=== PATIENT | male | born 1950 | race Caucasian/White ===

== ENCOUNTER 2018-02-10 08:26 | Inpatient (IN) | payer BC, MEDICARE ==
[~2018-02-10] VITALS: Ht 165.1 cm; Wt 61.7 kg
[2018-02-10] VITALS (8 sets, daily range): BP systolic 150–197; BP diastolic 88–113
[~2018-02-10 08:26] MED LIST: CIPROFLOXACIN500 M2 ORAL; IBUPROFEN600 MG ORAL
--- NOTE | 2018-02-10 08:49 | Emergency Room Report ---
History of Present Illness General Chief Complaint: Vomiting Source: Patient Present Illness HPI Patient is a 67-year-old male who presented after increased abdominal discomfort. Patient reports having increased generalized weakness. He reports having generalized body aches. Patient states that he was drinking heavily yesterday. He denies any fever. He reports having abdominal pain as well as vomiting. He denies any hematemesis. He states he's had similar symptoms approximately 6 months ago.The patient reports having prior history of hypertension but does not recall his medications. Allergies: Coded Allergies: No Known Allergies (Unverified , 07/20/16) Patient History Reviewed Nursing Documentation: PMH: Agreed; PSxH: Agreed Nursing Documentation-PMH Past Medical History: No History, Except For Hx Hypertension: Yes Hx Gastrointestinal Problems: Yes - GERD Review of Systems All Other Systems: negative except mentioned in HPI Physical Exam Vital Signs Date Time Temp Pulse Resp B/P (MAP) Pulse Ox O2 Delivery O2 Flow Rate FiO2 02/10/18 08:28 97.7 93 18 154/82 98 Room Air 97.7 Sp02 EP Interpretation: reviewed, normal General Appearance: normal inspection, alert, GCS 15, moderate distress Head: atraumatic ENT: normal ENT inspection, hearing grossly normal, normal voice Neck: normal inspection, full range of motion, supple, no bony tend Respiratory: normal inspection, lungs clear, normal breath sounds, no respiratory distress, no retraction, no wheezing Cardiovascular #1: regular rate, rhythm, no edema Gastrointestinal: normal inspection, normal bowel sounds, non tender, soft, no guarding, no hernia Genitourinary: no CVA tenderness Musculoskeletal: normal inspection, back normal, normal range of motion Neurologic: normal inspection, alert, oriented x3, responsive, manager acute III-XII nml as tested, speech normal Psychiatric: normal inspection, judgement/insight normal, mood/affect normal Skin: normal inspection, normal color, no rash Medical Decision Making Diagnostic Impression: Primary Impression: Pancreatitis, alcoholic, acute Additional Impressions: Hypertension Hx of diverticulitis of colon ER Course Patient presented for abdominal pain. Differential diagnoses included ischemic bowel, appendicitis, perforated viscus, abdominal aortic aneurysm, inferior myocardial infarction, viral gastroenteritis Because of complexity of patient's case laboratory testing and imaging studies were ordered. The patient was noted to have a recent heavy alcohol use. Patient reports having drinking more alcohol than usual. The patient does report having some prior history of diverticulitis however this appears more to be consistent with pancreatitis. The patient's the lipase was noted to be elevated as was his white blood count. The patient was discussed with The patient was discussed with Dr. Milagro Merritt [facility] physician for inpatient management due to advanced age and elevated white blood count. CT of abdomen showed no perforation or obstruction. Labs Test 02/10/18 08:46 02/10/18 09:46 White Blood Count 18.0 K/UL (4.8-10.8) Red Blood Count 5.26 M/UL (4.70-6.10) Hemoglobin 17.7 G/DL (14.2-18.0) Hematocrit 49.2 % (42.0-52.0) Mean Corpuscular Volume 94 FL (80-99) Mean Corpuscular Hemoglobin 33.7 PG (27.0-31.0) Mean Corpuscular Hemoglobin Concent 36.1 G/DL (32.0-36.0) Red Cell Distribution Width 11.7 % (11.6-14.8) Platelet Count 286 K/UL (150-450) Mean Platelet Volume 7.6 FL (6.5-10.1) Neutrophils (%) (Auto) % (45.0-75.0) Lymphocytes (%) (Auto) % (20.0-45.0) Monocytes (%) (Auto) % (1.0-10.0) Eosinophils (%) (Auto) % (0.0-3.0) Basophils (%) (Auto) % (0.0-2.0) Differential Total Cells Counted 100 Neutrophils % (Manual) 80 % (45-75) Lymphocytes % (Manual) 12 % (20-45) Monocytes % (Manual) 7 % (1-10) Eosinophils % (Manual) 0 % (0-3) Basophils % (Manual) 1 % (0-2) Band Neutrophils 0 % (0-8) Platelet Estimate Adequate Platelet Morphology Normal Red Blood Cell Morphology Normal Prothrombin Time 10.4 SEC (9.30-11.50) Prothromb Time International Ratio 1.0 (0.9-1.1) Activated Partial Thromboplast Time 28 SEC (23-33) Sodium Level 140 MMOL/L (136-145) Potassium Level 3.3 MMOL/L (3.5-5.1) Chloride Level 97 MMOL/L (98-107) Carbon Dioxide Level 28 MMOL/L (21-32) Anion Gap 15 mmol/L (5-15) Blood Urea Nitrogen 22 mg/dL (7-18) Creatinine 1.0 MG/DL (0.55-1.30) Estimat Glomerular Filtration Rate > 60 mL/min (>60) Glucose Level 187 MG/DL (74-106) Calcium Level 10.2 MG/DL (8.5-10.1) Total Bilirubin 1.7 MG/DL (0.2-1.0) Direct Bilirubin 0.3 MG/DL (0.0-0.3) Aspartate Amino Transf (AST/SGOT) 44 U/L (15-37) Alanine Aminotransferase (ALT/SGPT) 38 U/L (12-78) Alkaline Phosphatase 91 U/L (46-116) Troponin I 0.060 ng/mL (0.000-0.056) Total Protein 9.3 G/DL (6.4-8.2) Albumin 4.8 G/DL (3.4-5.0) Globulin 4.5 g/dL Albumin/Globulin Ratio 1.1 (1.0-2.7) Lipase 643 U/L (73-393) Urine Color Yellow Urine Appearance Clear Urine pH 6 (4.5-8.0) Urine Specific [place] 1.020 (1.005-1.035) Urine Protein 4+ (NEGATIVE) Urine Glucose (UA) 1+ (NEGATIVE) Urine Ketones 3+ (NEGATIVE) Urine Occult Blood 5+ (NEGATIVE) Urine Nitrite Negative (NEGATIVE) Urine Bilirubin Negative (NEGATIVE) Urine Urobilinogen Normal MG/DL (0.0-1.0) Urine Leukocyte Esterase Negative (NEGATIVE) Urine RBC 2-4 /HPF (0 - 0) Urine WBC 0-2 /HPF (0 - 0) Urine Squamous Epithelial Cells Occasional /LPF Urine Bacteria Few /HPF (NONE) Urine Opiates Screen Negative (NEGATIVE) Urine Barbiturates Screen Negative (NEGATIVE) Phencyclidine (PCP) Screen Negative (NEGATIVE) Urine Amphetamines Screen Negative (NEGATIVE) Urine Benzodiazepines Screen Negative (NEGATIVE) Urine Cocaine Screen Negative (NEGATIVE) Urine Marijuana (THC) Screen Positive (NEGATIVE) Last Vital Signs Date Time Temp Pulse Resp B/P (MAP) Pulse Ox O2 Delivery O2 Flow Rate FiO2 02/10/18 08:41 98.6 91 18 166/113 98 Room Air 98.6 Status: unchanged Disposition: ADMITTED INPATIENT Condition: Serious Neal Burks MD Feb 10, 2018 08:49
[2018-02-10] MEDS ORDERED: Pantoprazole Inj IV ONE (09:00)
[2018-02-10 09:21] LABS: ANION GAP 15 mmol/L (5-15); BLOOD UREA NITROGEN 22 mg/dL (7-18); CALCIUM 10.2 MG/DL (8.5-10.1); CARBON DIOXIDE 28 MMOL/L (21-32); CHLORIDE 97 MMOL/L (98-107); HEMATOCRIT 49.2 % (42.0-52.0); HEMOGLOBIN 17.7 G/DL (14.2-18.0); MEAN CORPUSCULAR VOLUME 94 FL (80-99); PLATELET COUNT 286 K/UL (150-450); POTASSIUM 3.3 MMOL/L (3.5-5.1); RED BLOOD COUNT 5.26 M/UL (4.70-6.10); RED CELL DISTRIBUTION WIDTH 11.7 % (11.6-14.8); SODIUM 140 MMOL/L (136-145)
[2018-02-10 09:26] LABS: ALANINE AMINOTRANSFERASE 38 U/L (12-78); ALBUMIN 4.8 G/DL (3.4-5.0); ALBUMIN/GLOBULIN RATIO 1.1 (1.0-2.7); ALKALINE PHOSPHATASE 91 U/L (46-116); ASPARTATE AMINO TRANSFERASE 44 U/L (15-37); BILIRUBIN,TOTAL 1.7 MG/DL (0.2-1.0)
[2018-02-10 09:41] LABS: BILIRUBIN,DIRECT 0.3 MG/DL (0.0-0.3)
[2018-02-10] MEDS ORDERED: Morphine Sulfate 4mg/ml Inj IVP ONE ×3 (09:45→14:15)
[2018-02-10 10:01] LABS: APPEARANCE,URINE CLEAR; BILIRUBIN, URINE NEGATIVE (NEGATIVE); GLUCOSE, URINE (UA) 1+ (NEGATIVE); KETONES,URINE 3+ (NEGATIVE); LEUKOCYTE ESTERASE ,URINE NEGATIVE (NEGATIVE); NITRITE,URINE NEGATIVE (NEGATIVE); PH,URINE 6 (4.5-8.0); PROTEIN,URINE 4+ (NEGATIVE); UROBILINOGEN,URINE NORMAL MG/DL (0.0-1.0)
[2018-02-10 10:13] LABS: COLOR,URINE YELLOW
[2018-02-10] MEDS ORDERED: D5 1/2NS w/KCl 20mEq 1,000 ML IV SCH (10:30)
[2018-02-10] MEDS ORDERED: Isovue-300 100ml vial INJ PRN (13:45)
[2018-02-10] MEDS ORDERED: D5NS 1,000 ML IV SCH (16:00)
[2018-02-10] MEDS: Morphine Sulfate 4mg/ml Inj IVP PRN ×2 (16:50→20:08)
[2018-02-10] MEDS: LORazepam Inj 2mg/ml 1ml IV PRN ×2 (17:08→22:35)
--- NOTE | 2018-02-10 17:38 | History & Physical ---
History and Physical History & Physicial #[id number] pancreatitis etoh abuse hypokalemia nv abdominal pain Milagro Rush DO Feb 10, 2018 17:37
[2018-02-10] MEDS ORDERED: Enalaprilat 2.5mg/2ml Inj IV SCH (18:00)
--- NOTE | 2018-02-10 19:30 | History and Physical Report ---
DATE OF ADMISSION: 02/10/2018 REASON FOR ADMISSION: Nausea, vomiting, and pancreatitis. HISTORY OF PRESENT ILLNESS: The patient is a 67-year-old gentleman who noted increased abdominal pain, severe in nature, happened 8 months ago and he had pancreatitis. He has a history of binge drinking a couple times a year and this is his second episode of pancreatitis. He has had no fevers or chills but was drinking heavily yesterday and then developed the pain. No vomiting, hemoptysis, hematochezia, melena, hematuria. Currently is NPO. Pain is controlled with IV morphine. PAST MEDICAL HISTORY: GERD. PAST SURGICAL HISTORY: Negative. MEDICATIONS: Prehospital and current medications reviewed, reconciled, and documented in electronic medical record in terms of dose, frequency, and route. SOCIAL HISTORY: Negative for tobacco. Positive for alcohol as noted by binge drinking, otherwise negative. 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 FAMILY HISTORY: Negative. PHYSICAL EXAMINATION: VITAL SIGNS: At the time my exam, he is alert. He is oriented. He is in no acute respiratory distress. HEENT: Normocephalic and atraumatic. Oropharynx is moist. Nasal mucosa is moist. NECK: Supple without lymphadenopathy. LUNGS: Decreased at the bases. No wheezing present. HEART: Regular rhythm without a murmur. ABDOMEN: Soft. Epigastric tenderness is noted. EXTREMITIES: No edema. NEUROLOGIC: No focal neuro deficits. SKIN: No skin rashes or lesions are present. LABORATORY AND DIAGNOSTIC DATA: His white count is 18, hemoglobin 17.7, platelets are 286. Sodium is 140, potassium 3.3, chloride 97, bicarb 28, BUN 22, gap of 15, creatinine is 1, glucose 187. Total bilirubin elevated 1.7. AST 44, ALT is 38. His troponin is 0.06, second troponin 0.068. Lipase is elevated at 643. Urinalysis is positive for ketones, negative for leukocyte esterase. Drug screen is positive for marijuana. Imaging studies are pending at this time. CT scan of the abdomen and pelvis was obtained in the emergency room, per report from the ER doctor CT of abdomen showed no perforation or obstruction but full report is pending at this time. ASSESSMENT: 1. Pancreatitis secondary to alcohol use. 2. Leukocytosis. 3. Nausea and vomiting. 4. Renal insufficiency. PLAN: For the patient, we will make him NPO. GI evaluation. IV fluids. No antibiotics at this time. Followup on CT scan. DVT prophylaxis. Antiemetics. Pain medications and replace his electrolytes as necessary. We will continue follow the patient for the remainder of his hospital stay. When a bed is available, [facility] which is [facility] insurance based [facility], the patient will be transferred accordingly. Milagro Rush D.O. DR: Francoise JOB#: [id number] CC:
[2018-02-10] MEDS ORDERED: HydrALAZINE 10mg Tab ORAL PRN ×2 (21:45→22:30)
[2018-02-11] VITALS (7 sets, daily range): BP systolic 144–201; BP diastolic 86–125
[2018-02-11] MEDS ORDERED: HydrALAZINE 10mg Tab ORAL PRN
[2018-02-11] MEDS: Morphine Sulfate 4mg/ml Inj IVP PRN ×2 (05:12→10:57)
[2018-02-11 08:09] LABS: BASOPHILS % (AUTO) 0.3 % (0.0-2.0); EOSINOPHILS % (AUTO) 0.1 % (0.0-3.0); HEMATOCRIT 44.4 % (42.0-52.0); HEMOGLOBIN 15.4 G/DL (14.2-18.0); LYMPHOCYTES % (AUTO) 11.7 % (20.0-45.0); MEAN CORPUSCULAR VOLUME 94 FL (80-99); MONOCYTES % (AUTO) 7.5 % (1.0-10.0); NEUTROPHILS % (AUTO) 80.4 % (45.0-75.0); PLATELET COUNT 227 K/UL (150-450); RED CELL DISTRIBUTION WIDTH 11.8 % (11.6-14.8)
--- NOTE | 2018-02-11 08:40 | Diagnostic Imaging Report ---
Clinical Indication: Abdominal pain Technique: No oral contrast utilized, per emergency room physician request IV administration nonionic contrast. Venous phase spiral acquisition obtained through the abdomen and pelvis. Multiplanar reconstructions were generated. Total dose length product 553.46 mGycm. CTDIvol(s) 11.19 mGy. Dose reduction achieved using automated exposure control Comparison: 07/20/2016 Findings: Normal appendix. There is colonic diverticulosis. No evidence of diverticulitis. No small bowel distention. No free or loculated intraperitoneal air or fluid is evident. Distal esophagus, stomach, duodenum are unremarkable. The liver is equivocally mildly hypoattenuating, consistent with steatosis. The gallbladder, bile ducts, pancreas, spleen, adrenals are unremarkable. The kidneys demonstrate a cyst on the right as well as bilateral subcentimeter low-attenuation lesions which are too small to characterize. No retroperitoneal or mesenteric mass or adenopathy. No pelvic mass or adenopathy. There is a 3 mm nodule at the right lung base posteriorly, image 10 series 7, which is not evident on the previous study. The bones are unremarkable. Impression: No acute abnormality 3 mm right basilar lung nodule, not evident on previous study of July 2016. Recommend short interval follow-up CT scan in 6-12 months Equivocal mild hepatic steatosis, previously reported Right renal cyst. Bilateral subcentimeter low-attenuation renal lesions, too small to characterize, most likely benign simple cysts Colonic diverticulosis. No evidence of diverticulitis This agrees with the preliminary interpretation provided overnight by [facility] teleradiology service. The CT scanner at [facility] is accredited by the [employer] and the scans are performed using protocols designed to limit radiation exposure to as low as reasonably achievable to attain images of sufficient resolution adequate for diagnostic evaluation.
[2018-02-11 09:21] LABS: AMYLASE 47 U/L (25-115); ANION GAP 10 mmol/L (5-15); BLOOD UREA NITROGEN 15 mg/dL (7-18); CALCIUM 8.5 MG/DL (8.5-10.1); CARBON DIOXIDE 27 MMOL/L (21-32); CHLORIDE 107 MMOL/L (98-107); CREATININE 0.8 MG/DL (0.55-1.30); POTASSIUM 3.8 MMOL/L (3.5-5.1); SODIUM 143 MMOL/L (136-145)
--- NOTE | 2018-02-11 09:35 | Pulmonology Progress Note ---
Assessment/Plan Assessment/Plan 1. Pancreatitis secondary to alcohol use. 2. Leukocytosis. Improved 3. Nausea and vomiting. 4. Renal insufficiency. 5. THC use PLAN: Continue NPO. GI evaluation pending. IV fluids. No antibiotics at this time. Reviewed CT scan. DVT prophylaxis. Antiemetics. Pain medications and replace his electrolytes as necessary. When a bed is available, [facility] which is his insurance based hospital, the patient will be transferred accordingly. Will consult cardiology for troponin leak Subjective Interval Events: Still complaining of abd pain Constitutional: Reports: no symptoms Respiratory: Reports: no symptoms Cardiovascular: Reports: no symptoms Gastrointestinal/Abdominal: Reports: nausea Genitourinary: Reports: no symptoms Neurologic: Reports: no symptoms Allergies: Coded Allergies: No Known Allergies (Unverified , 07/20/16) Objective Last 24 Hour Vital Signs Date Time Temp Pulse Resp B/P (MAP) Pulse Ox O2 Delivery O2 Flow Rate FiO2 02/11/18 08:00 98.8 79 19 160/90 94 Room Air 98.8 02/11/18 05:13 177/96 02/11/18 04:00 97.2 74 20 163/96 96 Room Air 97.2 02/11/18 04:00 67 02/11/18 00:00 72 02/11/18 00:00 97.4 73 20 150/94 94 Room Air 97.4 02/10/18 22:35 97.7 80 20 193/105 96 Room Air 97.7 02/10/18 22:32 193/105 02/10/18 21:00 77 18 182/109 97 02/10/18 20:38 97.9 02/10/18 20:09 196/111 02/10/18 20:00 98.1 78 18 196/111 98 Room Air 98.1 02/10/18 16:50 97.9 02/10/18 16:00 97.7 69 20 158/89 95 Room Air 97.7 02/10/18 15:27 77 150/90 02/10/18 14:16 97.9 02/10/18 14:09 97.9 74 20 165/88 97 Room Air 02/10/18 13:24 98.0 72 16 165/88 96 Room Air 98.0 02/10/18 12:42 194/102 02/10/18 12:31 98.0 6/10/18 12:31 98.0 90 17 197/98 99 Room Air 98.0 02/10/18 10:29 98.6 02/10/18 09:59 98.6 Intake and Output 02/10/18 02/11/18 19:00 07:00 Intake Total 350 ml 620 ml Output Total 900 ml Balance 350 ml -280 ml Intake Oral 120 ml IV Total 350 ml 500 ml Output Urine Total 350 ml Emesis 550 ml # Voids 1 General Appearance: no acute distress HEENT: normocephalic Respiratory/Chest: chest wall non-tender, lungs clear Cardiovascular: normal peripheral pulses, normal rate Abdomen: tender Laboratory Tests 02/10/18 09:46: Urine Color Yellow, Urine Appearance Clear, Urine pH 6, Urine Specific [place] 1.020, Urine Protein 4+H, Urine Glucose (UA) 1+H, Urine Ketones 3+H, Urine Occult Blood 5+H, Urine Nitrite Negative, Urine Bilirubin Negative, Urine Urobilinogen Normal, Urine Leukocyte Esterase Negative, Urine RBC 2-4H, Urine WBC 0-2, Urine Squamous Epithelial Cells Occasional, Urine Bacteria Few, Urine Opiates Screen Negative, Urine Barbiturates Screen Negative, Phencyclidine (PCP ) Screen Negative, Urine Amphetamines Screen Negative, Urine Benzodiazepines Screen Negative, Urine Cocaine Screen Negative, Urine Marijuana (THC) Screen PositiveH 02/10/18 16:44: Troponin I 0.068H 02/11/18 06:40: Troponin I 0.033, White Blood Count 11.0H, Red Blood Count 4.70, Hemoglobin 15.4 , Hematocrit 44.4, Mean Corpuscular Volume 94, Mean Corpuscular Hemoglobin 32.7H , Mean Corpuscular Hemoglobin Concent 34.6, Red Cell Distribution Width 11.8, Platelet Count 227, Mean Platelet Volume 7.7, Neutrophils (%) (Auto) 80.4H, Lymphocytes (%) (Auto) 11.7L, Monocytes (%) (Auto) 7.5, Eosinophils (%) (Auto) 0.1, Basophils (%) (Auto) 0.3, Sodium Level 143, Potassium Level 3.8, Chloride Level 107, Carbon Dioxide Level 27, Anion Gap 10, Blood Urea Nitrogen 15, Creatinine 0.8, Estimat Glomerular Filtration Rate > 60, Glucose Level 135H, Calcium Level 8.5, Amylase Level 47, Lipase 390 Current Medications Medications (Trade) Dose Ordered Sig/Flaco Route PRN Reason Start Time Stop Time Status Last Admin Dose Admin Clonidine HCl (Catapres Tab) 0.1 mg Q4H PRN ORAL sbp greater than 170 02/11/18 01:45 03/12/18 17:44 02/11/18 05:13 Hydralazine HCl (Apresoline) 10 mg Q6HR PRN ORAL For High Blood Pressure 02/11/18 00:00 03/12/18 22:29 Iopamidol (Isovue-300 100ml) 100 ml NOW PRN INJ Radiology Procedure 02/11/18 13:45 Lorazepam (Ativan 2mg/ml 1ml) 1 mg Q4H PRN IV AGITATION/WITHDRAWAL 02/10/18 23:45 02/17/18 15:44 Morphine Sulfate (Morphine Sulfate) 2 mg Q3H PRN IVP Severe Pain (Pain Scale 7-10) 02/11/18 00:45 02/17/18 15:44 02/11/18 05:12 Ondansetron HCl (Zofran) 4 mg Q6H PRN IVP Nausea & Vomiting 02/11/18 04:30 03/12/18 16:29 Potassium Chloride 40 meq/ Dextrose/Sodium Chloride 1,020 ml @ 125 mls/hr Q8H10M IV 02/10/18 23:15 03/12/18 18:29 02/11/18 06:49 Bob Barrios MD Feb 11, 2018 09:35
--- NOTE | 2018-02-11 09:42 | GI Initial Consult Note ---
History of Present Illness General Date patient seen: Feb 11, 2018 Time patient seen: 10:00 Reason for Hospitalization: Vomiting Referring physician: BERENICE OLEARY Reason for Consultation: PANCREATITIS Present Illness HPI Patient is a 67-year-old male who presented after increased abdominal discomfort. Patient reports having increased generalized weakness. He reports having generalized body aches. Patient states that he was drinking heavily yesterday. He denies any fever. He reports having abdominal pain as well as vomiting. He denies any hematemesis. He states he's had similar symptoms approximately 6 months ago.The patient reports having prior history of hypertension but does not recall his medications. GI consulted for pancreatitis. Pt was seen, awake A&Ox4 NAD with no active s/ sx of N/V/D. Has complaint of abdominal pain with tenderness. Per patient, he drank heavily yesterday unknown to recall the amount. He has history of diverticulitis with colonic resection approximately 9 yaers ago. He has not had a colonoscopy since then. He presents today with elevated lipase levels, positive utox for marijuana and elevated troponin levels. His CT was reviewed to show a right lung nodule, see full report. Home Meds Active Scripts Ibuprofen* (MOTRIN*) 600 Mg Tablet, 600 MG ORAL Q8H PRN for For Pain, #20 TAB 0 Refills Prov:Abimbola Kimbrough DO 07/21/16 Ciprofloxacin Hcl* (CIPROFLOXACIN HCL*) 500 Mg Tablet, 500 MG ORAL Q12H, #14 TAB 0 Refills Prov:Abimbola Kimbrough DO 07/21/16 Med list reviewed/reconciled: Yes Allergies: Coded Allergies: No Known Allergies (Unverified , 07/20/16) Patient History History Provided By: Patient, Medical Record PMH Narrative Reviewed Nursing Documentation: PMH: Agreed; PSxH: Agreed Nursing Documentation-PMH Past Medical History: No History, Except For Hx Hypertension: Yes Hx Gastrointestinal Problems: Yes - GERD Social History: Reports: alcohol use Review of Systems All Other Systems: negative except mentioned in HPI Physical Exam Vital Signs Date Time Temp Pulse Resp B/P (MAP) Pulse Ox O2 Delivery O2 Flow Rate FiO2 02/10/18 08:28 97.7 93 18 154/82 98 Room Air 97.7 Sp02 EP Interpretation: reviewed, normal Labs Laboratory Tests Test 02/10/18 09:46 6/10/18 16:44 02/11/18 06:40 Urine Color Yellow Urine Appearance Clear Urine pH 6 (4.5-8.0) Urine Specific [place] 1.020 (1.005-1.035) Urine Protein 4+ (NEGATIVE) H Urine Glucose (UA) 1+ (NEGATIVE) H Urine Ketones 3+ (NEGATIVE) H Urine Occult Blood 5+ (NEGATIVE) H Urine Nitrite Negative (NEGATIVE) Urine Bilirubin Negative (NEGATIVE) Urine Urobilinogen Normal MG/DL (0.0-1.0) Urine Leukocyte Esterase Negative (NEGATIVE) Urine RBC 2-4 /HPF (0 - 0) H Urine WBC 0-2 /HPF (0 - 0) Urine Squamous Epithelial Cells Occasional /LPF Urine Bacteria Few /HPF (NONE) Urine Opiates Screen Negative (NEGATIVE) Urine Barbiturates Screen Negative (NEGATIVE) Phencyclidine (PCP) Screen Negative (NEGATIVE) Urine Amphetamines Screen Negative (NEGATIVE) Urine Benzodiazepines Screen Negative (NEGATIVE) Urine Cocaine Screen Negative (NEGATIVE) Urine Marijuana (THC) Screen Positive (NEGATIVE) H Troponin I 0.068 ng/mL (0.000-0.056) 0.033 ng/mL (0.000-0.056) White Blood Count 11.0 K/UL (4.8-10.8) H Red Blood Count 4.70 M/UL (4.70-6.10) Hemoglobin 15.4 G/DL (14.2-18.0) Hematocrit 44.4 % (42.0-52.0) Mean Corpuscular Volume 94 FL (80-99) Mean Corpuscular Hemoglobin 32.7 PG (27.0-31.0) H Mean Corpuscular Hemoglobin Concent 34.6 G/DL (32.0-36.0) Red Cell Distribution Width 11.8 % (11.6-14.8) Platelet Count 227 K/UL (150-450) Mean Platelet Volume 7.7 FL (6.5-10.1) Neutrophils (%) (Auto) 80.4 % (45.0-75.0) H Lymphocytes (%) (Auto) 11.7 % (20.0-45.0) L Monocytes (%) (Auto) 7.5 % (1.0-10.0) Eosinophils (%) (Auto) 0.1 % (0.0-3.0) Basophils (%) (Auto) 0.3 % (0.0-2.0) Sodium Level 143 MMOL/L (136-145) Potassium Level 3.8 MMOL/L (3.5-5.1) Chloride Level 107 MMOL/L (98-107) Carbon Dioxide Level 27 MMOL/L (21-32) Anion Gap 10 mmol/L (5-15) Blood Urea Nitrogen 15 mg/dL (7-18) Creatinine 0.8 MG/DL (0.55-1.30) Estimat Glomerular Filtration Rate > 60 mL/min (>60) Glucose Level 135 MG/DL (74-106) H Calcium Level 8.5 MG/DL (8.5-10.1) Amylase Level 47 U/L (25-115) Lipase 390 U/L (73-393) General Appearance: well appearing, no apparent distress, alert Head: normocephalic EENT: PERRL/EOMI, normal ENT inspection Neck: supple Respiratory: normal breath sounds, no respiratory distress Cardiovascular: normal rate Gastrointestinal: normal inspection, non tender, soft, normal bowel sounds, non -distended Rectal: deferred Genitourinary: deferred Musculoskeletal: normal inspection, back normal Neurologic: normal inspection, alert, oriented x3, responsive Psychiatric: normal inspection, judgement/insight normal, memory normal Skin: normal inspection, normal color, no rash, warm/dry, palpation normal, well hydrated Lymphatic: normal inspection, no adenopathy Current Medications Current Medications Medications (Trade) Dose Ordered Sig/Flaco Route PRN Reason Start Time Stop Time Status Last Admin Dose Admin Clonidine HCl (Catapres Tab) 0.1 mg Q4H PRN ORAL sbp greater than 170 02/11/18 01:45 03/12/18 17:44 02/11/18 05:13 Hydralazine HCl (Apresoline) 10 mg Q6HR PRN ORAL For High Blood Pressure 02/11/18 00:00 03/12/18 22:29 Iopamidol (Isovue-300 100ml) 100 ml NOW PRN INJ Radiology Procedure 02/11/18 13:45 Lorazepam (Ativan 2mg/ml 1ml) 1 mg Q4H PRN IV AGITATION/WITHDRAWAL 02/10/18 23:45 02/17/18 15:44 Morphine Sulfate (Morphine Sulfate) 2 mg Q3H PRN IVP Severe Pain (Pain Scale 7-10) 02/11/18 00:45 02/17/18 15:44 02/11/18 05:12 Ondansetron HCl (Zofran) 4 mg Q6H PRN IVP Nausea & Vomiting 02/11/18 04:30 03/12/18 16:29 Potassium Chloride 40 meq/ Dextrose/Sodium Chloride 1,020 ml @ 125 mls/hr Q8H10M IV 02/10/18 23:15 03/12/18 18:29 02/11/18 06:49 GI: Plan Problems: (1) Pancreatitis, alcoholic, acute (2) Hx of diverticulitis of colon (3) Abdominal pain Plan hx of diverticulitis with colon resection x 9 years utox positive for marijuana alcoholic pancreatitis >> lipase is now normal CT AP reviewed, see full report >> R lung nodule. CLD, adv as tolerated pain mgmt IV/PO fluide replacement abx zofran prn, reglan for persistent vomiting abx fu labs outpatient colonoscopy Discussed with Dr. Looney. Thank you for this patient referral, we will follow. The patient was seen and examined at bedside and all new and available data was reviewed in the patients chart. I agree with the above findings, impression and plan. (Patient seen earlier today. Signature stamp does not reflect patient encounter time.). - MD Rosy Phillips,[facility] [employer] Feb 11, 2018 09:42
--- NOTE | 2018-02-11 13:33 | Cardiology Report ---
APPROVED REPORT EKG Measurement Heart [id number] Sinus rhythm with premature atrial contractions Otherwise normal ECG
[2018-02-11] MEDS ORDERED: Isovue-300 100ml vial INJ PRN (13:45)
[2018-02-11] MEDS: LORazepam Inj 2mg/ml 1ml IV PRN (22:41)
[2018-02-12] VITALS: BP 147/104
[2018-02-12 04:00] VITALS: BP 139/79
--- NOTE | 2018-02-12 06:45 | Consultation ---
DATE OF CONSULTATION: 02/11/2018 CARDIOLOGY CONSULT CONSULTING PHYSICIAN: Aries Liang M.D. REQUESTING PHYSICIAN: Bob Barrios M.D. REASON FOR CONSULT: Elevated troponin level. HISTORY OF PRESENT ILLNESS: This is a 67-year-old male, who presented to the emergency room yesterday with abdominal pain and was noted to have acute pancreatitis. The patient has a prior history of pancreatitis and this as well as a prior episodes were both associated with drinking alcohol heavily. The patient did not have any vomiting of coffee-ground material or bright red blood per rectum and he denied any chest pain, although the severity of his abdominal pain may have negated any other symptoms. Since admission, he has been on IV fluids, remains NPO, and is on IV morphine for pain. Of concern has been an elevated troponin level prompting this consultation. PAST MEDICAL HISTORY: Gastroesophageal reflux disease. MEDICATIONS: Reviewed and reconciled. SOCIAL HISTORY: Alcohol, binge drinking. No smoking or substance abuse. FAMILY HISTORY: Noncontributory. ALLERGIES: None known. REVIEW OF SYSTEMS: Negative for prior cardiovascular disease, rheumatic heart disease, or cardiac arrhythmias. history of coronary disease or exertional chest pain. PHYSICAL EXAMINATION: VITAL SIGNS: Blood pressure 201/125, earlier now 144/86, heart rate 83, respiratory rate 17, and afebrile. HEENT: Conjunctivae are pink. Sclerae are anicteric. Oropharynx clear. NECK: Supple. Jugular venous pressure normal. LUNGS: Clear. CARDIAC: Regular rhythm and rate. Normal S1, S2 with no murmur, rub, or gallop. ABDOMEN: Diffusely tender with no guarding or rebound. EXTREMITIES: No clubbing, cyanosis, or edema. LABORATORY AND DIAGNOSTIC DATA: EKG reveals sinus rhythm with occasional PACs. Troponin #1 is 0.060, troponin #2 is 0.068, and troponin #3 is 0.033. IMPRESSION: 1. Acute pancreatitis with acute abdominal pain. 2. Elevated troponin levels likely represent troponin leak due to transient myocardial ischemia, possibly due to hypertensive episode. 3. Episodes of elevated blood pressure, likely associated with acute pain. 4. Premature atrial contractions likely secondary to hypokalemia. PLAN: 1. Continue hydration. 2. Replace electrolytes. 3. Pain control. 4. Monitor blood pressure, beta-luciano for persistent blood pressure elevation. 5. Follow up potassium and magnesium levels. 6. No additional cardiovascular studies presently planned. Aries Liang M.D. DR: ARETHA JOB#: [id number] CC:
[2018-02-12 07:36] LABS: BASOPHILS % (AUTO) 0.8 % (0.0-2.0); HEMOGLOBIN 14.3 G/DL (14.2-18.0); LYMPHOCYTES % (AUTO) 32.4 % (20.0-45.0); MEAN CORPUSCULAR VOLUME 95 FL (80-99); MONOCYTES % (AUTO) 10.4 % (1.0-10.0); NEUTROPHILS % (AUTO) 55.3 % (45.0-75.0); PLATELET COUNT 188 K/UL (150-450); RED BLOOD COUNT 4.33 M/UL (4.70-6.10); RED CELL DISTRIBUTION WIDTH 11.5 % (11.6-14.8); WHITE BLOOD COUNT 6.4 K/UL (4.8-10.8)
[2018-02-12 07:49] LABS: ALANINE AMINOTRANSFERASE 28 U/L (12-78); ALBUMIN 3.2 G/DL (3.4-5.0); ALKALINE PHOSPHATASE 60 U/L (46-116); ANION GAP 8 mmol/L (5-15); ASPARTATE AMINO TRANSFERASE 29 U/L (15-37); BILIRUBIN,TOTAL 1.4 MG/DL (0.2-1.0); BLOOD UREA NITROGEN 12 mg/dL (7-18); CALCIUM 8.3 MG/DL (8.5-10.1); CARBON DIOXIDE 25 MMOL/L (21-32); CHLORIDE 106 MMOL/L (98-107); CREATININE 0.8 MG/DL (0.55-1.30); POTASSIUM 3.7 MMOL/L (3.5-5.1); SODIUM 139 MMOL/L (136-145)
[2018-02-12 07:51] LABS: BILIRUBIN,DIRECT 0.2 MG/DL (0.0-0.3)
[2018-02-12 08:00] VITALS: BP 165/107
--- NOTE | 2018-02-12 11:40 | General Progress Note ---
Assessment/Plan Assessment/Plan 1. Pancreatitis secondary to alcohol use. 2. Leukocytosis. Improved 3. Nausea and vomiting. 4. Renal insufficiency. 5. THC use 6. HTN. poor control 7. Mild elevation of troponin PLAN: IV fluids. No antibiotics at this time. Reviewed CT scan. DVT prophylaxis. Antiemetics. Pain medications HTN rx started PT eval Subjective Gastrointestinal/Abdominal: Reports: nausea, vomiting Allergies: Coded Allergies: No Known Allergies (Unverified , 07/20/16) Objective Last 24 Hour Vital Signs Date Time Temp Pulse Resp B/P (MAP) Pulse Ox O2 Delivery O2 Flow Rate FiO2 02/12/18 08:00 97.7 88 20 165/107 95 Room Air 97.7 02/12/18 08:00 70 02/12/18 04:00 71 02/12/18 04:00 97.8 72 20 139/79 98 Room Air 97.8 02/12/18 00:00 98.2 70 19 147/104 98 Room Air 98.2 02/12/18 00:00 73 02/11/18 20:00 98.6 61 19 158/103 99 Room Air 98.6 02/11/18 20:00 68 02/11/18 16:00 69 02/11/18 16:00 97.6 83 17 144/86 98 Room Air 97.6 02/11/18 12:30 86 156/95 02/11/18 12:00 98.7 85 19 201/125 98 Room Air 98.7 02/11/18 12:00 79 02/11/18 11:50 201/125 Intake and Output 02/11/18 02/12/18 19:00 07:00 Intake Total 600 ml Balance 600 ml Other 600 ml # Voids 3 5 Laboratory Tests 02/12/18 06:10: White Blood Count 6.4, Red Blood Count 4.33L, Hemoglobin 14.3, Hematocrit 41.0L , Mean Corpuscular Volume 95, Mean Corpuscular Hemoglobin 33.1H, Mean Corpuscular Hemoglobin Concent 35.0, Red Cell Distribution Width 11.5L, Platelet Count 188, Mean Platelet Volume 8.3, Neutrophils (%) (Auto) 55.3, Lymphocytes (%) (Auto) 32.4, Monocytes (%) (Auto) 10.4H, Eosinophils (%) (Auto) 1.0, Basophils (%) (Auto) 0.8, Sodium Level 139, Potassium Level 3.7, Chloride Level 106, Carbon Dioxide Level 25, Anion Gap 8, Blood Urea Nitrogen 12, Creatinine 0.8, Estimat Glomerular Filtration Rate > 60, Glucose Level 101, Calcium Level 8.3L, Magnesium Level 1.8, Total Bilirubin 1.4H, Direct Bilirubin 0.2, Aspartate Amino Transf (AST/SGOT) 29, Alanine Aminotransferase (ALT/SGPT) 28, Alkaline Phosphatase 60, Total Protein 6.5, Albumin 3.2L, Globulin 3.3, Albumin/Globulin Ratio 1.0, Lipase 445H Height (Feet): 5 Height (Inches): 5.00 Weight (Pounds): 140 General Appearance: no apparent distress Cardiovascular: normal rate Respiratory/Chest: lungs clear Abdomen: non tender, soft, no organomegaly Rafa Gutierrez MD Feb 12, 2018 11:40
[2018-02-12] MEDS: D5NS 1,000 ML IV SCH ×2 (11:45→19:30)
[2018-02-12 12:00] VITALS: BP 178/92
--- NOTE | 2018-02-12 13:44 | GI Progress Note ---
Assessment/Plan Problems: (1) Pancreatitis, alcoholic, acute ICD Codes: K85.20 - Alcohol induced acute pancreatitis without necrosis or infection SNOMED: 454042498 (2) Abdominal pain ICD Codes: R10.9 - Unspecified abdominal pain SNOMED: 65175969 (3) Hypertension ICD Codes: I10 - Essential (primary) hypertension SNOMED: 98476274 (4) Hx of diverticulitis of colon ICD Codes: Z87.19 - Personal history of other diseases of the digestive system SNOMED: 086759846249490 Status: progressing Status Narrative Discussed with Dr. Looney. Assessment/Plan hx of diverticulitis with colon resection x 9 years utox positive for marijuana alcoholic pancreatitis >> lipase is now normal CT AP reviewed, see full report >> R lung nodule. soft diet today pain mgmt IV/PO fluid replacement abx zofran prn, reglan for persistent vomiting fu labs outpatient colonoscopy The patient was seen and examined at bedside and all new and available data was reviewed in the patients chart. I agree with the above findings, impression and plan. (Patient seen earlier today. Signature stamp does not reflect patient encounter time.). - Tarik Looney MD Subjective Subjective still has abdominal pain Objective Last 24 Hour Vital Signs Date Time Temp Pulse Resp B/P (MAP) Pulse Ox O2 Delivery O2 Flow Rate FiO2 02/12/18 12:03 178/92 02/12/18 08:00 97.7 88 20 165/107 95 Room Air 97.7 02/12/18 08:00 70 02/12/18 04:00 71 02/12/18 04:00 97.8 72 20 139/79 98 Room Air 97.8 02/12/18 00:00 98.2 70 19 147/104 98 Room Air 98.2 02/12/18 00:00 73 02/11/18 20:00 98.6 61 19 158/103 99 Room Air 98.6 02/11/18 20:00 68 02/11/18 16:00 69 02/11/18 16:00 97.6 83 17 144/86 98 Room Air 97.6 Intake and Output 02/11/18 02/12/18 19:00 07:00 Intake Total 600 ml Balance 600 ml Other 600 ml # Voids 3 5 Laboratory Tests Test 02/12/18 06:10 White Blood Count 6.4 K/UL (4.8-10.8) Red Blood Count 4.33 M/UL (4.70-6.10) L Hemoglobin 14.3 G/DL (14.2-18.0) Hematocrit 41.0 % (42.0-52.0) L Mean Corpuscular Volume 95 FL (80-99) Mean Corpuscular Hemoglobin 33.1 PG (27.0-31.0) H Mean Corpuscular Hemoglobin Concent 35.0 G/DL (32.0-36.0) Red Cell Distribution Width 11.5 % (11.6-14.8) L Platelet Count 188 K/UL (150-450) Mean Platelet Volume 8.3 FL (6.5-10.1) Neutrophils (%) (Auto) 55.3 % (45.0-75.0) Lymphocytes (%) (Auto) 32.4 % (20.0-45.0) Monocytes (%) (Auto) 10.4 % (1.0-10.0) H Eosinophils (%) (Auto) 1.0 % (0.0-3.0) Basophils (%) (Auto) 0.8 % (0.0-2.0) Sodium Level 139 MMOL/L (136-145) Potassium Level 3.7 MMOL/L (3.5-5.1) Chloride Level 106 MMOL/L (98-107) Carbon Dioxide Level 25 MMOL/L (21-32) Anion Gap 8 mmol/L (5-15) Blood Urea Nitrogen 12 mg/dL (7-18) Creatinine 0.8 MG/DL (0.55-1.30) Estimat Glomerular Filtration Rate > 60 mL/min (>60) Glucose Level 101 MG/DL (74-106) Calcium Level 8.3 MG/DL (8.5-10.1) L Magnesium Level 1.8 MG/DL (1.8-2.4) Total Bilirubin 1.4 MG/DL (0.2-1.0) H Direct Bilirubin 0.2 MG/DL (0.0-0.3) Aspartate Amino Transf (AST/SGOT) 29 U/L (15-37) Alanine Aminotransferase (ALT/SGPT) 28 U/L (12-78) Alkaline Phosphatase 60 U/L (46-116) Total Protein 6.5 G/DL (6.4-8.2) Albumin 3.2 G/DL (3.4-5.0) L Globulin 3.3 g/dL Albumin/Globulin Ratio 1.0 (1.0-2.7) Lipase 445 U/L (73-393) H Height (Feet): 5 Height (Inches): 5.00 Weight (Pounds): 140 General Appearance: WD/WN, no apparent distress, alert Cardiovascular: normal rate Respiratory/Chest: normal breath sounds, no respiratory distress Abdominal Exam: normal bowel sounds, non tender, soft Extremities: normal range of motion, non-tender Gorge Gallegos NP Feb 12, 2018 13:44
[2018-02-12 15:42] VITALS: BP 157/79
[2018-02-12] MEDS: Lisinopril 20mg tab ORAL SCH (17:32)
[2018-02-12 20:00] VITALS: BP 131/81
[2018-02-12] MEDS: LORazepam Inj 2mg/ml 1ml IV PRN (21:36)
[2018-02-13] VITALS: BP 153/92
[2018-02-13] MEDS: D5NS 1,000 ML IV SCH (03:10)
[2018-02-13 04:00] VITALS: BP 155/89
--- NOTE | 2018-02-13 05:15 | Progress Note ---
DATE: 02/12/2018 CARDIOLOGY PROGRESS NOTE SUBJECTIVE: The patient's abdominal pain is decreasing. Diet has been started. He remains on IV fluids. Troponin levels have normalized. OBJECTIVE: VITAL SIGNS: Blood pressure is 139/79 to 165/107, heart rate 70 to 88, respiratory rate 20, and afebrile. LUNGS: Clear. CARDIAC: Regular. ABDOMEN: Soft. EXTREMITIES: No edema. IMPRESSION: 1. Acute pancreatitis. 2. Alcohol abuse. 3. Labile hypertension. 4. Acute myocardial ischemia, resolved. PLAN: 1. Add beta-luciano for blood pressure management. 2. Anti-platelet therapy with aspirin. 3. Outpatient stress test for assessment of coronary flow reserve once gastrointestinal parameters have stabilized. Aries Liang M.D. DR: ROCIO JOB#: [id number] CC:
[2018-02-13 07:18] LABS: ANION GAP 9 mmol/L (5-15); BLOOD UREA NITROGEN 8 mg/dL (7-18); CALCIUM 8.3 MG/DL (8.5-10.1); CARBON DIOXIDE 25 MMOL/L (21-32); CHLORIDE 106 MMOL/L (98-107); CREATININE 0.7 MG/DL (0.55-1.30); POTASSIUM 3.6 MMOL/L (3.5-5.1); SODIUM 140 MMOL/L (136-145)
[2018-02-13 07:34] LABS: BASOPHILS % (AUTO) 0.5 % (0.0-2.0); EOSINOPHILS % (AUTO) 1.6 % (0.0-3.0); HEMATOCRIT 40.4 % (42.0-52.0); MEAN CORPUSCULAR VOLUME 94 FL (80-99); MONOCYTES % (AUTO) 10.2 % (1.0-10.0); NEUTROPHILS % (AUTO) 55.8 % (45.0-75.0); PLATELET COUNT 178 K/UL (150-450); RED BLOOD COUNT 4.31 M/UL (4.70-6.10); RED CELL DISTRIBUTION WIDTH 10.9 % (11.6-14.8); WHITE BLOOD COUNT 6.2 K/UL (4.8-10.8)
[2018-02-13 08:12] VITALS: BP 155/93
[2018-02-13] MEDS: Lisinopril 20mg tab ORAL SCH (08:23)
[2018-02-13] MEDS: Metoprolol Succinate XL 25mg tab ORAL SCH ×2 (08:24→08:26)
[2018-02-13] MEDS ORDERED: Aspirin EC 81mg tab ORAL SCH (09:00)
--- NOTE | 2018-02-13 10:39 | GI Progress Note ---
Assessment/Plan Problems: (1) Pancreatitis, alcoholic, acute ICD Codes: K85.20 - Alcohol induced acute pancreatitis without necrosis or infection SNOMED: 499592117 (2) Abdominal pain ICD Codes: R10.9 - Unspecified abdominal pain SNOMED: 33553587 (3) Hypertension ICD Codes: I10 - Essential (primary) hypertension SNOMED: 20105606 (4) Hx of diverticulitis of colon ICD Codes: Z87.19 - Personal history of other diseases of the digestive system SNOMED: 076226638969691 Status: stable Status Narrative Discussed with Dr. Looney. Assessment/Plan hx of diverticulitis with colon resection x 9 years utox positive for marijuana alcoholic pancreatitis >> lipase still elevated, however patient is asymptomatic CT AP reviewed, see full report >> R lung nodule. okay for DC per GI standpoint soft diet, tolerate pain mgmt IV/PO fluid replacement zofran prn, reglan for persistent vomiting fu labs outpatient colonoscopy alcohol cessation education given The patient was seen and examined at bedside and all new and available data was reviewed in the patients chart. I agree with the above findings, impression and plan. (Patient seen earlier today. Signature stamp does not reflect patient encounter time.). - Tarik Looney MD Subjective Gastrointestinal/Abdominal: Reports: no symptoms Subjective abdominal pain resolved ready to go home Objective Last 24 Hour Vital Signs Date Time Temp Pulse Resp B/P (MAP) Pulse Ox O2 Delivery O2 Flow Rate FiO2 02/13/18 08:26 52 155/93 02/13/18 08:23 155/93 02/13/18 08:12 98.0 56 18 155/93 97 Room Air 98.0 02/13/18 08:00 63 02/13/18 04:00 97.7 52 20 155/89 100 Nasal Cannula 2.0 97.7 02/13/18 03:49 62 02/13/18 00:00 64 02/13/18 00:00 98.7 60 20 153/92 96 Nasal Cannula 2.0 98.7 02/12/18 20:00 98.2 78 20 131/81 98 98.2 02/12/18 19:57 72 02/12/18 17:32 157/79 02/12/18 16:00 91 02/12/18 15:42 98.2 90 20 157/79 100 Room Air 98.2 02/12/18 12:03 178/92 02/12/18 12:00 96.8 93 20 178/92 100 Room Air 96.8 02/12/18 12:00 73 Intake and Output 02/12/18 02/13/18 19:00 07:00 Intake Total 1300 ml 1416.5 ml Output Total 1000 ml 1200 ml Balance 300 ml 216.5 ml Intake Oral 1300 ml IV Total 1416.5 ml Output Urine Total 1000 ml 1200 ml # Bowel Movements 1 Laboratory Tests Test 02/13/18 06:05 White Blood Count 6.2 K/UL (4.8-10.8) Red Blood Count 4.31 M/UL (4.70-6.10) L Hemoglobin 14.0 G/DL (14.2-18.0) L Hematocrit 40.4 % (42.0-52.0) L Mean Corpuscular Volume 94 FL (80-99) Mean Corpuscular Hemoglobin 32.5 PG (27.0-31.0) H Mean Corpuscular Hemoglobin Concent 34.7 G/DL (32.0-36.0) Red Cell Distribution Width 10.9 % (11.6-14.8) L Platelet Count 178 K/UL (150-450) Mean Platelet Volume 7.6 FL (6.5-10.1) Neutrophils (%) (Auto) 55.8 % (45.0-75.0) Lymphocytes (%) (Auto) 32.0 % (20.0-45.0) Monocytes (%) (Auto) 10.2 % (1.0-10.0) H Eosinophils (%) (Auto) 1.6 % (0.0-3.0) Basophils (%) (Auto) 0.5 % (0.0-2.0) Sodium Level 140 MMOL/L (136-145) Potassium Level 3.6 MMOL/L (3.5-5.1) Chloride Level 106 MMOL/L (98-107) Carbon Dioxide Level 25 MMOL/L (21-32) Anion Gap 9 mmol/L (5-15) Blood Urea Nitrogen 8 mg/dL (7-18) Creatinine 0.7 MG/DL (0.55-1.30) Estimat Glomerular Filtration Rate > 60 mL/min (>60) Glucose Level 103 MG/DL (74-106) Calcium Level 8.3 MG/DL (8.5-10.1) L Lipase 668 U/L (73-393) H Height (Feet): 5 Height (Inches): 5.00 Weight (Pounds): 136 General Appearance: WD/WN, no apparent distress, alert Cardiovascular: normal rate Respiratory/Chest: normal breath sounds, no respiratory distress Abdominal Exam: normal bowel sounds, non tender, soft Extremities: normal range of motion, non-tender Gorge Gallegos NP Feb 13, 2018 10:39
[2018-02-13 12:15] VITALS: BP 155/84
[2018-02-13] MEDS ORDERED: D5NS 1000ml IV ONE ×2 (13:06)
--- NOTE | 2018-02-13 16:25 | Consultation ---
History of Present Illness General Date patient seen: Feb 13, 2018 Chief Complaint: Vomiting Referring physician: BERENICE OLEARY Reason for Consultation: PANCREATITIS Present Illness HPI 67-year-old male who presented with increased generalized weakness and alcohol abuse. the Allergies: Coded Allergies: No Known Allergies (Unverified , 07/20/16) Medication History Scheduled Ciprofloxacin Hcl* (Ciprofloxacin Hcl*), 500 MG ORAL Q12H Scheduled PRN Ibuprofen* (Motrin*), 600 MG ORAL Q8H PRN for For Pain Patient History Healthcare decision maker Resuscitation status Full Code Advanced Directive on File Physical Exam Last 24 Hour Vital Signs Date Time Temp Pulse Resp B/P (MAP) Pulse Ox O2 Delivery O2 Flow Rate FiO2 02/13/18 12:15 98.3 60 21 155/84 97 Room Air 98.3 02/13/18 08:26 52 155/93 02/13/18 08:23 155/93 02/13/18 08:12 98.0 56 18 155/93 97 Room Air 98.0 02/13/18 08:00 63 02/13/18 04:00 97.7 52 20 155/89 100 Nasal Cannula 2.0 97.7 02/13/18 03:49 62 02/13/18 00:00 64 02/13/18 00:00 98.7 60 20 153/92 96 Nasal Cannula 2.0 98.7 02/12/18 20:00 98.2 78 20 131/81 98 98.2 02/12/18 19:57 72 02/12/18 17:32 157/79 Intake and Output 02/12/18 02/13/18 19:00 07:00 Intake Total 1300 ml 1416.5 ml Output Total 1000 ml 1200 ml Balance 300 ml 216.5 ml Intake Oral 1300 ml IV Total 1416.5 ml Output Urine Total 1000 ml 1200 ml # Bowel Movements 1 Laboratory Tests Test 02/13/18 06:05 White Blood Count 6.2 K/UL (4.8-10.8) Red Blood Count 4.31 M/UL (4.70-6.10) L Hemoglobin 14.0 G/DL (14.2-18.0) L Hematocrit 40.4 % (42.0-52.0) L Mean Corpuscular Volume 94 FL (80-99) Mean Corpuscular Hemoglobin 32.5 PG (27.0-31.0) H Mean Corpuscular Hemoglobin Concent 34.7 G/DL (32.0-36.0) Red Cell Distribution Width 10.9 % (11.6-14.8) L Platelet Count 178 K/UL (150-450) Mean Platelet Volume 7.6 FL (6.5-10.1) Neutrophils (%) (Auto) 55.8 % (45.0-75.0) Lymphocytes (%) (Auto) 32.0 % (20.0-45.0) Monocytes (%) (Auto) 10.2 % (1.0-10.0) H Eosinophils (%) (Auto) 1.6 % (0.0-3.0) Basophils (%) (Auto) 0.5 % (0.0-2.0) Sodium Level 140 MMOL/L (136-145) Potassium Level 3.6 MMOL/L (3.5-5.1) Chloride Level 106 MMOL/L (98-107) Carbon Dioxide Level 25 MMOL/L (21-32) Anion Gap 9 mmol/L (5-15) Blood Urea Nitrogen 8 mg/dL (7-18) Creatinine 0.7 MG/DL (0.55-1.30) Estimat Glomerular Filtration Rate > 60 mL/min (>60) Glucose Level 103 MG/DL (74-106) Calcium Level 8.3 MG/DL (8.5-10.1) L Lipase 668 U/L (73-393) H Height (Feet): 5 Height (Inches): 5.00 Weight (Pounds): 136 Diana Goncalves M.D. Feb 13, 2018 16:25
--- NOTE | 2018-02-13 22:15 | Progress Note ---
DATE: 02/13/2018 CARDIOLOGY PROGRESS NOTE SUBJECTIVE: Abdominal pain has decreased significantly and the patient is tolerating oral intake with no nausea or vomiting. He has not had chest pain. No shortness of breath. OBJECTIVE: VITAL SIGNS: Blood pressure 155/93, pulse 52, and respirations 18. NECK: Supple. LUNGS: Clear. CARDIAC: Regular. Normal S1, S2 with a fourth heart sound. ABDOMEN: Soft. EXTREMITIES: No edema. IMPRESSION: 1. Resolving pancreatitis. 2. Alcohol abuse. 3. Marijuana use. 4. Hypertension, labile. 5. Troponin leak suggesting coronary artery disease with no current signs of acute coronary insufficiency. PLAN: 1. Titrate and optimize antihypertensive control as an outpatient. 2. Antiplatelet therapy. 3. Outpatient myocardial perfusion scan recommended for assessment of coronary flow reserve once gastrointestinal parameters have normalized. Aries Liang M.D. DR: SAMANTHA JOB#: [id number] CC:
--- NOTE | 2018-02-14 10:02 | Discharge Summary ---
Discharge Summary Discharge Summary _ DATE OF ADMISSION: 02/10/2018 DATE OF DISCHARGE: 02/13/2018 REASON FOR ADMISSION: 67 years old male with past medical history significant for hypertension, GERD, ETOH abuse, diverticulitis, requiring colon resection presented with abdominal discomfort and generalized weakness. He reported drinking heavily the day prior to presentation to emergency department. He denied fever and chills. He reported vomiting , but no hematemesis. Similar symptoms occurred about 6 months ago. Upon evaluation, blood pressure 154/82, otherwise stable vital signs. Laboratory workup revealed leukocytosis WBC 18 ,stable hemoglobin and hematocrit. Potassium 3.3. BUN 22 ,creatinine 1.0 ,glucose 187, troponin minimally elevated 0.06, urinalysis +4 protein +5 occult blood, but no evidence of UTI. Urine toxicology screen positive for marijuana. INR 1.0. LFT stable, total bili 1.4. Lipase 390. Patient admitted with diagnosis of acute pancreatitis, abdominal pain, renal insufficiency ,elevated troponin. CONSULTANTS: otr company driver GI specialist psychiatrist [facility] COURSE: Patient admitted to telemetry floor. Patient initially was nothing by mouth. Patient started on the IV hydration. GI and cardiac evaluations were requested. CT of the abdomen and pelvis demonstrated no acute abnormality. 3 mm right base lung nodule ,not evident on previous study, noted. Antiemetics provided as needed . Pain management was addressed . DVT/GI prophylaxis provided. No antibiotics. GI specialist closely followed. Patient slowly started on diet and was able to advance as tolerated without emesis. Antiemetics were on board as needed. Patient has history of diverticulitis with the colon resection 9 years ago. Patient was recommended outpatient colonoscopy. Patient was on multivitamins and folate. Patient received alcohol cessation education. Lipase was trended, elevated 445-668, but patient remained asymptomatic and clinically improved. Leukocytosis resolved. Pain controlled. Electrolytes were replaced as needed. Renal parameters and electrolytes were closely monitored and nephrotoxins were avoided. Prior to discharge, stable potassium, BUN down to 8 with stable creatinine. [employer]st closely followed. Minimally elevated troponin was likely due to troponin leak secondary to transient myocardial ischemia. No current signs of acute coronary insufficiency noted as per otr company driver. Blood pressure was managed with beta luciano and RADHA inhibitor, stabilized. Antiplatelet added to current regimen. [employer] Ac[employer]st recommended to optimize antihypertensive control as needed as outpatient. [employer]st also recommended outpatient myocardial perfusion scan test for assessment of coronary flow reserve once GI parameters normalized. Supportive care provided. Patient was strongly advised to do CT chest in 6 months for evaluation of newly discovered right base lung nodule . Patient was stable for discharge FINAL DIAGNOSES: Acute alcoholic pancreatitis Abdominal pain Elevated troponin likely troponin leak secondary to transient myocardial ischemia Labile hypertension ETOH abuse Marijuana abuse Right base lung nodule Mild renal insufficiency-resolved History of diverticulitis with colon resection DISCHARGE MEDICATIONS: See Medication Reconciliation list. DISCHARGE INSTRUCTIONS: Patient was discharged home. Patient to follow-up with primary care provider. Patient counseled on alcohol cessation. Patient counseled on abstinence from recreational use of street drugs. Patient was advised to have CT of the chest done in 6 months. Patient was advised to have outpatient colonoscopy. I have been assigned to dictate discharge summary for this account. I was not involved in the patient's management. Renetta Lin NP Feb 14, 2018 10:02
== END 2018-02-13 13:07 | disposition home or self-care (01) | DRG 440 ==
LOC: EMR 09:07 → 3E 10:20 → EDBEDREQ 11:34 → 2E 22:55
DX: K85.20 Alcohol induced acute pancreatitis without necrosis or infection (principal); N28.9 Disorder of kidney and ureter, unspecified; I49.1 Atrial premature depolarization; F10.10 Alcohol abuse, uncomplicated; E87.6 Hypokalemia; K21.9 Gastro-esophageal reflux disease without esophagitis; I51.3 Intracardiac thrombosis, not elsewhere classified; I10 Essential (primary) hypertension; F12.10 Cannabis abuse, uncomplicated; Z87.19 Personal history of other diseases of the digestive system
CPT/HCPCS: 36415; 74177; 80048; 80053; 80307; 81003; 82150; 82248; 83690; 83735; 84484; 85007; 85025; 85610; 85730; 86850; 86900; 86901; 93005; 99285; J2405

== ENCOUNTER 2018-08-03 18:03 | Inpatient (IN) | payer BC ==
[~2018-08-03] VITALS: Ht 170.2 cm; Wt 81.6 kg
[2018-08-03] MEDS ORDERED: Morphine Sulfate 4mg/ml Inj (IV/IM USE ONLY) IVP ONE ×3 (18:15→19:30)
[2018-08-03 18:53] VITALS: BP 188/98
--- NOTE | 2018-08-03 18:55 | Emergency Room Report ---
History of Present Illness General Chief Complaint: Gastrointestinal Bleed Source: Medical Record Present Illness HPI Patient is a 67-year-old male who presented after increased abdominal pain and vomiting. Patient gradual onset of symptoms. He reports having similar symptoms yesterday. Patient recently been seen and evaluated at [facility] for similar symptoms. The patient had recently been hospitalized for pancreatitis secondary to alcohol. Patient denies any recent alcohol use. He reports having additional prior history of diverticulitis.Patient denies any fever.The patient reports having increased severe epigastric pain. He reports is worse after eating some beans.The patient had previous CT imaging which showed some diverticulosis. Patient was appears at this facility and had pancreatitis at that time. Allergies: Coded Allergies: No Known Allergies (Unverified , 07/20/16) Patient History Past Medical History: see triage record, old chart reviewed Reviewed Nursing Documentation: PMH: Agreed; PSxH: Agreed Nursing Documentation-PMH Past Medical History: No History, Except For Hx Cardiac Problems: Yes Hx Hypertension: Yes Hx Cancer: No Hx Gastrointestinal Problems: Yes Hx Neurological Problems: No Review of Systems All Other Systems: limited - by poor cooperation Physical Exam Vital Signs Date Time Temp Pulse Resp B/P (MAP) Pulse Ox O2 Delivery O2 Flow Rate FiO2 08/03/18 18:40 98.2 81 22 188/98 100 Room Air Sp02 EP Interpretation: reviewed, normal General Appearance: alert, GCS 15, moderate distress, Chronically Ill Head: atraumatic ENT: normal ENT inspection, hearing grossly normal, normal voice Neck: normal inspection, full range of motion, supple, no bony tend Respiratory: normal inspection, lungs clear, normal breath sounds, no respiratory distress, no retraction, no wheezing Cardiovascular #1: regular rate, rhythm, no edema Gastrointestinal: non tender, soft, no guarding, no hernia, tenderness - epigastric Genitourinary: no CVA tenderness Musculoskeletal: normal inspection, back normal, normal range of motion Neurologic: normal inspection, alert, oriented x3, responsive, 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 Differential diagnoses included ischemic bowel, appendicitis, perforated viscus, abdominal aortic aneurysm, inferior myocardial infarction, viral gastroenteritis. Because of complexity of patient' s case laboratory testing and imaging studies were ordered.The patient was given IV fluids as well as IV antiemetics. Patient was noted to have some trace the hematemesis. Patient was noted to have some improvement in pain after antiemetics and pain medications. The patient was given IV acid blockers. The patient had recent CT imaging at [facility]. Dr. Gutierrez was contacted for inpatient management due to capitated physician Labs Test 08/03/18 18:45 08/03/18 19:50 White Blood Count 8.5 K/UL (4.8-10.8) Red Blood Count 4.88 M/UL (4.70-6.10) Hemoglobin 15.7 G/DL (14.2-18.0) Hematocrit 43.4 % (42.0-52.0) Mean Corpuscular Volume 89 FL (80-99) Mean Corpuscular Hemoglobin 32.2 PG (27.0-31.0) Mean Corpuscular Hemoglobin Concent 36.2 G/DL (32.0-36.0) Red Cell Distribution Width 10.4 % (11.6-14.8) Platelet Count 253 K/UL (150-450) Mean Platelet Volume 7.6 FL (6.5-10.1) Neutrophils (%) (Auto) 78.8 % (45.0-75.0) Lymphocytes (%) (Auto) 16.3 % (20.0-45.0) Monocytes (%) (Auto) 4.5 % (1.0-10.0) Eosinophils (%) (Auto) 0.0 % (0.0-3.0) Basophils (%) (Auto) 0.4 % (0.0-2.0) Prothrombin Time 10.3 SEC (9.30-11.50) Prothromb Time International Ratio 1.0 (0.9-1.1) Activated Partial Thromboplast Time 24 SEC (23-33) Sodium Level 138 MMOL/L (136-145) Potassium Level 3.5 MMOL/L (3.5-5.1) Chloride Level 100 MMOL/L (98-107) Carbon Dioxide Level 22 MMOL/L (21-32) Anion Gap 16 mmol/L (5-15) Blood Urea Nitrogen 13 mg/dL (7-18) Creatinine 0.9 MG/DL (0.55-1.30) Estimat Glomerular Filtration Rate > 60 mL/min (>60) Glucose Level 143 MG/DL (74-106) Calcium Level 9.6 MG/DL (8.5-10.1) Total Bilirubin 0.9 MG/DL (0.2-1.0) Aspartate Amino Transf (AST/SGOT) 27 U/L (15-37) Alanine Aminotransferase (ALT/SGPT) 33 U/L (12-78) Alkaline Phosphatase 74 U/L (46-116) Total Protein 8.7 G/DL (6.4-8.2) Albumin 4.4 G/DL (3.4-5.0) Globulin 4.3 g/dL Albumin/Globulin Ratio 1.0 (1.0-2.7) Lipase 146 U/L (73-393) Urine Color Pale yellow Urine Appearance Clear Urine pH 8 (4.5-8.0) Urine Specific [place] 1.015 (1.005-1.035) Urine Protein Negative (NEGATIVE) Urine Glucose (UA) Negative (NEGATIVE) Urine Ketones 3+ (NEGATIVE) Urine Blood Negative (NEGATIVE) Urine Nitrite Negative (NEGATIVE) Urine Bilirubin Negative (NEGATIVE) Urine Urobilinogen Normal MG/DL (0.0-1.0) Urine Leukocyte Esterase Negative (NEGATIVE) Urine Opiates Screen Negative (NEGATIVE) Urine Barbiturates Screen Negative (NEGATIVE) Phencyclidine (PCP) Screen Negative (NEGATIVE) Urine Amphetamines Screen Negative (NEGATIVE) Urine Benzodiazepines Screen Negative (NEGATIVE) Urine Cocaine Screen Negative (NEGATIVE) Urine Marijuana (THC) Screen Positive (NEGATIVE) EKG Diagnostic Results Rate: normal Rhythm: NSR ST Segments: no acute changes Last Vital Signs Date Time Temp Pulse Resp B/P (MAP) Pulse Ox O2 Delivery O2 Flow Rate FiO2 08/03/18 18:40 98.2 81 22 188/98 100 Room Air Status: improved Disposition: ADMITTED INPATIENT Condition: Stable Neal Burks MD Aug 03, 2018 18:55
[2018-08-03] MEDS ORDERED: Metoclopramide 10mg/2ml Inj IVP ONE (19:00)
[2018-08-03 19:22] LABS: BASOPHILS % (AUTO) 0.4 % (0.0-2.0); HEMATOCRIT 43.4 % (42.0-52.0); HEMOGLOBIN 15.7 G/DL (14.2-18.0); LYMPHOCYTES % (AUTO) 16.3 % (20.0-45.0); MEAN CORPUSCULAR VOLUME 89 FL (80-99); MONOCYTES % (AUTO) 4.5 % (1.0-10.0); NEUTROPHILS % (AUTO) 78.8 % (45.0-75.0); PLATELET COUNT 253 K/UL (150-450); RED BLOOD COUNT 4.88 M/UL (4.70-6.10); RED CELL DISTRIBUTION WIDTH 10.4 % (11.6-14.8); WHITE BLOOD COUNT 8.5 K/UL (4.8-10.8)
[2018-08-03 19:23] LABS: ANION GAP 16 mmol/L (5-15); BLOOD UREA NITROGEN 13 mg/dL (7-18); CALCIUM 9.6 MG/DL (8.5-10.1); CARBON DIOXIDE 22 MMOL/L (21-32); CHLORIDE 100 MMOL/L (98-107); CREATININE 0.9 MG/DL (0.55-1.30); POTASSIUM 3.5 MMOL/L (3.5-5.1); SODIUM 138 MMOL/L (136-145)
[2018-08-03 19:27] LABS: ALANINE AMINOTRANSFERASE 33 U/L (12-78); ALBUMIN 4.4 G/DL (3.4-5.0); ALKALINE PHOSPHATASE 74 U/L (46-116); ASPARTATE AMINO TRANSFERASE 27 U/L (15-37); BILIRUBIN,TOTAL 0.9 MG/DL (0.2-1.0)
[2018-08-03 19:57] LABS: APPEARANCE,URINE CLEAR; BILIRUBIN, URINE NEGATIVE (NEGATIVE); COLOR,URINE PALE YELLOW; GLUCOSE, URINE (UA) NEGATIVE (NEGATIVE); KETONES,URINE 3+ (NEGATIVE); LEUKOCYTE ESTERASE ,URINE NEGATIVE (NEGATIVE); NITRITE,URINE NEGATIVE (NEGATIVE); PH,URINE 8 (4.5-8.0); PROTEIN,URINE NEGATIVE (NEGATIVE); UROBILINOGEN,URINE NORMAL MG/DL (0.0-1.0)
[2018-08-03] MEDS ORDERED: FLUTICASONE PRO16 G1 NASAL (20:26)
[2018-08-03] MEDS ORDERED: [UNRECOGNIZED DRUG - REMARK] IO (20:26)
[2018-08-03] MEDS ORDERED: LIPITOR10 MG ORAL (20:26)
[2018-08-03] MEDS ORDERED: ZOLPIDEM TARTRAT5 MG ORAL (20:26)
[2018-08-03] MEDS ORDERED: AMLODIPINE BESYL5 MG ORAL (20:26)
[2018-08-03 20:30] VITALS: BP 176/100
[2018-08-03 22:34] VITALS: BP 174/94
[2018-08-03 23:07] VITALS: BP 177/79
[2018-08-03] MEDS ORDERED: Morphine Sulfate 2mg/ml Inj IVP PRN (23:30)
[2018-08-03] MEDS ORDERED: Zolpidem 5mg tab ORAL PRN (23:30)
[2018-08-04] VITALS: BP 186/117
[2018-08-04 04:00] VITALS: BP 129/78
[2018-08-04 07:29] LABS: BASOPHILS % (AUTO) 0.3 % (0.0-2.0); EOSINOPHILS % (AUTO) 0.1 % (0.0-3.0); HEMOGLOBIN 14.5 G/DL (14.2-18.0); LYMPHOCYTES % (AUTO) 18.3 % (20.0-45.0); MEAN CORPUSCULAR VOLUME 90 FL (80-99); MONOCYTES % (AUTO) 9.3 % (1.0-10.0); PLATELET COUNT 241 K/UL (150-450); RED BLOOD COUNT 4.54 M/UL (4.70-6.10); RED CELL DISTRIBUTION WIDTH 10.6 % (11.6-14.8); WHITE BLOOD COUNT 9.7 K/UL (4.8-10.8)
[2018-08-04 07:42] LABS: ALANINE AMINOTRANSFERASE 34 U/L (12-78); ALBUMIN 3.9 G/DL (3.4-5.0); ALKALINE PHOSPHATASE 67 U/L (46-116); ANION GAP 12 mmol/L (5-15); ASPARTATE AMINO TRANSFERASE 29 U/L (15-37); BILIRUBIN,DIRECT 0.1 MG/DL (0.0-0.3); BILIRUBIN,TOTAL 0.7 MG/DL (0.2-1.0); BLOOD UREA NITROGEN 12 mg/dL (7-18); CALCIUM 8.6 MG/DL (8.5-10.1); CARBON DIOXIDE 25 MMOL/L (21-32); CHLORIDE 102 MMOL/L (98-107); CREATININE 0.9 MG/DL (0.55-1.30); POTASSIUM 3.5 MMOL/L (3.5-5.1); SODIUM 139 MMOL/L (136-145)
[2018-08-04 08:00] VITALS: BP 133/87
--- NOTE | 2018-08-04 08:45 | General Progress Note ---
Assessment/Plan Assessment/Plan abd pain has resolved no evidence for pancreatitis or diverticulitis advance diet dc planning per primary team Subjective ROS Limited/Unobtainable: Yes Allergies: Coded Allergies: No Known Allergies (Unverified , 07/20/16) Objective Last 24 Hour Vital Signs Date Time Temp Pulse Resp B/P (MAP) Pulse Ox O2 Delivery O2 Flow Rate FiO2 08/04/18 08:00 97.2 90 22 133/87 (102) 97 08/04/18 04:00 98.5 71 19 129/78 (95) 96 08/04/18 00:55 186/117 08/04/18 00:25 Room Air 08/04/18 00:00 98.7 81 18 186/117 (140) 99 08/03/18 23:07 97.7 81 18 177/79 (111) 100 08/03/18 22:40 98.2 88 20 174/94 100 Room Air 08/03/18 22:34 98.2 88 20 174/94 100 Room Air 08/03/18 20:57 98.2 08/03/18 20:56 98.2 08/03/18 20:30 98.2 86 20 176/100 100 Room Air 08/03/18 18:53 98.2 81 22 188/98 100 Room Air 08/03/18 18:53 81 22 Room Air 08/03/18 18:40 98.2 81 22 188/98 100 Room Air Intake and Output 08/03/18 08/04/18 19:00 07:00 Intake Total 1450 ml Output Total 100 ml 400 ml Balance -100 ml 1050 ml Intake IV Total 1450 ml Output Urine Total 400 ml Emesis 100 ml Laboratory Tests 08/03/18 18:45: White Blood Count 8.5, Red Blood Count 4.88, Hemoglobin 15.7, Hematocrit 43.4, Mean Corpuscular Volume 89, Mean Corpuscular Hemoglobin 32.2H, Mean Corpuscular Hemoglobin Concent 36.2H, Red Cell Distribution Width 10.4L, Platelet Count 253 , Mean Platelet Volume 7.6, Neutrophils (%) (Auto) 78.8H, Lymphocytes (%) (Auto ) 16.3L, Monocytes (%) (Auto) 4.5, Eosinophils (%) (Auto) 0.0, Basophils (%) ( Auto) 0.4, Prothrombin Time 10.3, Prothromb Time International Ratio 1.0, Activated Partial Thromboplast Time 24, Sodium Level 138, Potassium Level 3.5, Chloride Level 100, Carbon Dioxide Level 22, Anion Gap 16H, Blood Urea Nitrogen 13, Creatinine 0.9, Estimat Glomerular Filtration Rate > 60, Glucose Level 143H , Calcium Level 9.6, Total Bilirubin 0.9, Aspartate Amino Transf (AST/SGOT) 27, Alanine Aminotransferase (ALT/SGPT) 33, Alkaline Phosphatase 74, Total Protein 8.7H, Albumin 4.4, Globulin 4.3, Albumin/Globulin Ratio 1.0, Lipase 146 08/03/18 19:50: Urine Color Pale yellow, Urine Appearance Clear, Urine pH 8, Urine Specific [place] 1.015, Urine Protein Negative, Urine Glucose (UA) Negative, Urine Ketones 3+H, Urine Blood Negative, Urine Nitrite Negative, Urine Bilirubin Negative, Urine Urobilinogen Normal, Urine Leukocyte Esterase Negative, Urine Opiates Screen Negative, Urine Barbiturates Screen Negative, Phencyclidine (PCP ) Screen Negative, Urine Amphetamines Screen Negative, Urine Benzodiazepines Screen Negative, Urine Cocaine Screen Negative, Urine Marijuana (THC) Screen PositiveH 08/04/18 05:30: White Blood Count 9.7, Red Blood Count 4.54L, Hemoglobin 14.5, Hematocrit 41.0L , Mean Corpuscular Volume 90, Mean Corpuscular Hemoglobin 31.9H, Mean Corpuscular Hemoglobin Concent 35.4, Red Cell Distribution Width 10.6L, Platelet Count 241, Mean Platelet Volume 7.7, Neutrophils (%) (Auto) 72.0, Lymphocytes (%) (Auto) 18.3L, Monocytes (%) (Auto) 9.3, Eosinophils (%) (Auto) 0.1, Basophils (%) (Auto) 0.3, Sodium Level 139, Potassium Level 3.5, Chloride Level 102, Carbon Dioxide Level 25, Anion Gap 12, Blood Urea Nitrogen 12, Creatinine 0.9, Estimat Glomerular Filtration Rate > 60, Glucose Level 108H, Calcium Level 8.6, Total Bilirubin 0.7, Aspartate Amino Transf (AST/SGOT) 29, Alanine Aminotransferase (ALT/SGPT) 34, Alkaline Phosphatase 67, Total Protein 7.9, Albumin 3.9, Direct Bilirubin 0.1 Height (Feet): 5 Height (Inches): 7.00 Weight (Pounds): 180 General Appearance: alert EENT: normal ENT inspection Neck: supple Cardiovascular: normal rate Respiratory/Chest: decreased breath sounds Abdomen: normal bowel sounds, non tender, soft Extremities: non-tender Tarik Looney MD Aug 04, 2018 08:45
[2018-08-04 08:55] VITALS: BP 133/87
[2018-08-04] MEDS ORDERED: Heparin 5000 units/ml inj SUBQ SCH (09:00)
--- NOTE | 2018-08-04 10:21 | Diagnostic Imaging Report ---
EXAM: XR Abdomen, 2 Views CLINICAL HISTORY: ABD PAIN TECHNIQUE: Frontal view of the abdomen/pelvis with upright view of the abdomen. COMPARISON: No relevant prior studies available. FINDINGS: Intraperitoneal space: No free air. Gastrointestinal tract: Moderate stool in colon. No bowel obstruction. Bones/joints: Unremarkable. IMPRESSION: Moderate stool in colon. No bowel obstruction.
[2018-08-05] MEDS ORDERED: NORMODYNE100 MG ORAL (17:38)
[2018-08-05] MEDS ORDERED: TOBRADEX EYE DRO5 M1 OP (20:48)
[2018-08-05] MEDS ORDERED: ACUVAIL 0.45%1 EACH OP (20:50)
--- NOTE | 2018-08-06 13:48 | Discharge Summary ---
Discharge Summary Discharge Summary _ DATE OF ADMISSION: 08/03/2018 DATE OF DISCHARGE: 08/04. Patient signed AGAINST MEDICAL ADVICE. REASON FOR ADMISSION: 67 years old male with past medical history of hypertension, diverticulitis, pancreatitis secondary to ETOH abuse, for which he was recently hospitalized, presented to emergency department complaining of abdominal pain and vomiting. Patient denied recent alcohol use. Patient reported severe epigastric pain , worse after eating beans. No fever or chills . Upon evaluation vital signs revealed elevated blood pressure 188/98, otherwise vital signs were stable. Laboratory workup was unremarkable: no leukocytosis , stable hemoglobin and hematocrit , stable electrolytes,renal parameters and lipase. Abdominal x-ray revealed moderate stool in colon , but no bowel obstruction. Patient admitted with diagnosis of abdominal pain , possible gastritis. CONSULTANTS: GI specialist Dr. Looney [facility]SE: Patient admitted to medical surgical floor and started on IV hydration and clear liquid diet. Blood pressure was managed with calcium channel luciano and clonidine on as needed basis. Blood pressures stabilized with current regimen. DVT and GI prophylaxis provided. Statin was continued. Pain management was addressed. Bowel regimen instituted . Antiemetics provided as needed. Pulse oximetry was stable on room air, no fevers. Urine toxicology screen was positive for marijuana ; serum alcohol level was less than 3. Patient was counseled on abstinence from alcohol and marijuana. GI specialist seen and evaluated patient . Per GI specialist , there was no evidence of pancreatitis or diverticulitis. Abdominal pain resolved at that time. GI specialist recommended to advance diet on and discharge planning. Patient decided to leave AGAINST MEDICAL ADVICE without waiting for attending physician and advancing diet. Pain resolved, and patient insisted on leaving. The risks and consequences of signing AGAINST MEDICAL ADVICE were discussed with patient in detail. Patient verbalized understanding, nevertheless signed AMA form and left. FINAL DIAGNOSES: Hypertensive urgency -resolved History of pancreatitis secondary to ETOH abuse Diverticulosis Possible gastritis , alcohol induced ETOH abuse Marijuana use I have been assigned to dictate discharge summary for this account. I was not involved in the patient's management. Renetta Lin NP Aug 06, 2018 13:48
== END 2018-08-04 12:30 | disposition left against medical advice (07) | DRG 305 ==
LOC: EMR 18:30 → 4E 21:14 → EDBEDREQ 21:51 → 4E 23:05
DX: I16.0 Hypertensive urgency (principal); I10 Essential (primary) hypertension; K57.90 Diverticulosis of intestine, part unspecified, without perforation or abscess without bleeding; K29.20 Alcoholic gastritis without bleeding; F10.10 Alcohol abuse, uncomplicated
CPT/HCPCS: 36415; 74018; 80048; 80053; 80076; 80307; 81003; 82962; 83690; 85025; 85610; 85730; 87081; 93005; 96361; 96374; 96375; 96376; 99285; J2405; J2765

== ENCOUNTER 2018-08-04 22:57 | Inpatient (IN) | payer BC ==
[~2018-08-04] VITALS: Ht 165.1 cm; Wt 65.8 kg
[~2018-08-04 22:57] MED LIST changes: +AMLODIPINE BESYL5 MG ORAL; +FLUTICASONE PRO16 G1 NASAL; +LIPITOR10 MG ORAL; +ZOLPIDEM TARTRAT5 MG ORAL; +[UNRECOGNIZED DRUG - REMARK] IO
--- NOTE | 2018-08-04 23:14 | Emergency Room Report ---
History of Present Illness General Chief Complaint: To Be Triaged Source: Patient, Medical Record Present Illness HPI This a 67-year-old male with a history of high blood pressure and alcoholic gastritis. He was admitted last night for abdominal pain and elevated lipase. He sat out AMA. He went home and had a piece of chocolate. His pain came back and he has been vomiting since. The complained of 10 out of 10 pain. Pain localized to mostly epigastric area. No fever or chills. Vomiting is nonbloody and nonbilious. No diarrhea. Similar symptom in the past. Recent CT showed no diverticulitis or obstruction. Allergies: Coded Allergies: No Known Allergies (Unverified , 07/20/16) Patient History Past Medical History: see triage record, old chart reviewed, HTN Past Surgical History: other Pertinent Family History: none Social History: Reports: alcohol use Immunizations: other Reviewed Nursing Documentation: PMH: Agreed; PSxH: Agreed Nursing Documentation-PMH Hx Cardiac Problems: Yes Hx Hypertension: Yes Hx Cancer: No Hx Gastrointestinal Problems: Yes Hx Neurological Problems: No Review of Systems Eye: Denies: eye pain, blurred vision ENT: Denies: ear pain, nose congestion, throat swelling Respiratory: Denies: cough, shortness of breath Cardiovascular: Denies: chest pain, palpitations Gastrointestinal: Reports: abdominal pain, nausea, vomiting; Denies: diarrhea Musculoskeletal: Denies: back pain, joint pain Skin: Denies: rash Neurological: Denies: headache, numbness Endocrine: Denies: increased thirst, increased urine Hematologic/Lymphatic: Denies: easy bruising All Other Systems: negative except mentioned in HPI Physical Exam vitals with high blood pressure Sp02 EP Interpretation: reviewed, normal General Appearance: well appearing, no apparent distress, alert Head: normocephalic, atraumatic Eyes: bilateral eye PERRL, bilateral eye EOMI ENT: hearing grossly normal, normal pharynx Neck: full range of motion, supple, no meningismus Respiratory: chest non-tender, lungs clear, normal breath sounds Cardiovascular #1: regular rate, rhythm, no murmur Gastrointestinal: no mass, no organomegaly, no bruit, non-distended, tenderness - Epigastric, decreased bowel sounds Musculoskeletal: back normal, gait/station normal, normal range of motion Neurologic: alert, oriented x3 Psychiatric: mood/affect normal Skin: warm/dry Medical Decision Making Diagnostic Impression: Primary Impression: Intractable abdominal pain Additional Impressions: Hypokalemia Intractable nausea and vomiting Qualified Codes: R11.2 - Nausea with vomiting, unspecified Dehydration Hypertension Qualified Codes: I10 - Essential (primary) hypertension ER Course Patient with intractable vomiting and abdominal pain. CT scan unremarkable. No evidence of pancreatitis. No evidence of any obstruction. He does have evidence of dehydration. Patient is stable for transfer versus admit his on insurance. I discussed case with Dr. Gutierrez who will admit. Lab Results Impression labs with low potassium EKG Diagnostic Results Rate: normal Rhythm: NSR ST Segments: no acute changes Rhythm Strip Diag. Results Rhythm Strip Time: 00:11 EP Interpretation: yes Rate: 76 Rhythm: NSR, no PVC's, no ectopy CT/MRI/US Diagnostic Results CT/MRI/US Diagnostic Results : Imaging Test Ordered: CT abdomen and pelvis Impression negative per radiologist Status: improved Disposition: ADMITTED INPATIENT Condition: Serious Peter Gallegos MD Aug 04, 2018 23:14
[2018-08-04] MEDS ORDERED: Morphine Sulfate 4mg/ml Inj (IV/IM USE ONLY) IVP ONE (23:15)
[2018-08-04] MEDS ORDERED: Isovue-300 100ml vial INJ PRN (23:15)
[2018-08-04] MEDS ORDERED: Pantoprazole Inj IVP ONE (23:15)
[2018-08-04 23:16] VITALS: BP 216/118
[2018-08-04 23:26] LABS: BASOPHILS % (AUTO) 0.5 % (0.0-2.0); EOSINOPHILS % (AUTO) 0.7 % (0.0-3.0); HEMATOCRIT 46.1 % (42.0-52.0); HEMOGLOBIN 16.8 G/DL (14.2-18.0); LYMPHOCYTES % (AUTO) 24.6 % (20.0-45.0); MEAN CORPUSCULAR VOLUME 88 FL (80-99); MONOCYTES % (AUTO) 8.2 % (1.0-10.0); NEUTROPHILS % (AUTO) 66.1 % (45.0-75.0); PLATELET COUNT 283 K/UL (150-450); RED BLOOD COUNT 5.23 M/UL (4.70-6.10); RED CELL DISTRIBUTION WIDTH 10.3 % (11.6-14.8); WHITE BLOOD COUNT 13.8 K/UL (4.8-10.8)
[2018-08-04 23:44] LABS: APPEARANCE,URINE CLEAR; BILIRUBIN, URINE NEGATIVE (NEGATIVE); COLOR,URINE PALE YELLOW; GLUCOSE, URINE (UA) NEGATIVE (NEGATIVE); KETONES,URINE 2+ (NEGATIVE); LEUKOCYTE ESTERASE ,URINE NEGATIVE (NEGATIVE); NITRITE,URINE NEGATIVE (NEGATIVE); PH,URINE 8 (4.5-8.0); PROTEIN,URINE NEGATIVE (NEGATIVE); UROBILINOGEN,URINE NORMAL MG/DL (0.0-1.0)
[2018-08-04 23:45] LABS: ALANINE AMINOTRANSFERASE 34 U/L (12-78); ALBUMIN 4.7 G/DL (3.4-5.0); ALKALINE PHOSPHATASE 80 U/L (46-116); ANION GAP 12 mmol/L (5-15); ASPARTATE AMINO TRANSFERASE 33 U/L (15-37); BILIRUBIN,TOTAL 1.1 MG/DL (0.2-1.0); BLOOD UREA NITROGEN 16 mg/dL (7-18); CALCIUM 9.9 MG/DL (8.5-10.1); CARBON DIOXIDE 28 MMOL/L (21-32); CHLORIDE 96 MMOL/L (98-107); CREATININE 1.1 MG/DL (0.55-1.30); SODIUM 137 MMOL/L (136-145)
[2018-08-04 23:48] LABS: POTASSIUM 2.7 MMOL/L (3.5-5.1)
[2018-08-04 23:50] LABS: BILIRUBIN,DIRECT 0.2 MG/DL (0.0-0.3)
[2018-08-05] VITALS (8 sets, daily range): BP systolic 113–181; BP diastolic 62–94
[2018-08-05] MEDS ORDERED: Morphine Sulfate 4mg/ml Inj (IV/IM USE ONLY) IVP ONE (00:15)
[2018-08-05] MEDS ORDERED: Promethazine HCl 25 MG in NS 55 ML IVPB ONE (00:15)
[2018-08-05] MEDS ORDERED: Ketorolac 30mg Inj IV ONE (02:15)
[2018-08-05] MEDS ORDERED: Morphine Sulfate 2mg/ml Inj IVP ONE (02:15)
--- NOTE | 2018-08-05 08:59 | Diagnostic Imaging Report ---
Clinical Indication: Abdominal pain for 2 days Technique: No oral contrast utilized, per emergency room physician request IV administration nonionic contrast. Venous phase spiral acquisition obtained through the abdomen and pelvis. Multiplanar reconstructions were generated. Total dose length product 463.5 mGycm. CTDIvol(s) 9.67 mGy. Dose reduction achieved using automated exposure control Comparison: 02/10/2018 Findings: Exam is slightly limited, as the most inferior pelvis is cut off from the imaging volume. There is colonic diverticulosis. No evidence of diverticulitis. The appendix is normal. No small bowel distention. No free or loculated intraperitoneal gas or fluid. There is a small sliding-type hiatal hernia. The stomach is otherwise unremarkable. The duodenum is unremarkable. The liver demonstrates a focus of fatty change in the usual location adjacent to the falciform ligament, is otherwise unremarkable. The gallbladder, bile ducts, pancreas, spleen, adrenals are unremarkable. The right kidney demonstrates cysts. There are also bilateral subcentimeter low-attenuation lesions which are too small to characterize. No renal or ureteral calculi, hydronephrosis, or hydroureter. No pelvic mass or adenopathy. No retroperitoneal or mesenteric mass or adenopathy. Calcified granulomata are seen at both lung bases. Small irregular sub-5 mm opacities at the lung bases bilaterally are nonspecific, most likely represent postinflammatory changes. The most inferior of these is unchanged from the previous study. Others were not included in the prior imaging volume. The bones are unremarkable. Impression: No acute abnormality Evidence of old granulomatous disease at both lung bases. Sub-5 mm parenchymal opacities are seen bilaterally, only one of which was evident previously but the others largely excluded from the previous imaging volume. Recommend short interval follow-up CT scan in 6-12 months Small right renal cysts. Subcentimeter low-attenuation renal lesions bilaterally, too small to characterize, most likely benign simple cysts. No further follow-up necessary Colonic diverticulosis. No evidence of diverticulitis Small sliding-type hiatal hernia, also previously described This agrees with the preliminary interpretation provided overnight by [facility] teleradiology service. The CT scanner at [facility] is accredited by the [employer] and the scans are performed using protocols designed to limit radiation exposure to as low as reasonably achievable to attain images of sufficient resolution adequate for diagnostic evaluation.
[2018-08-05] MEDS ORDERED: Zolpidem 5mg tab ORAL PRN (09:00)
[2018-08-05] MEDS ORDERED: D5NS w/KCl 40mEq 1000ml 1,000 ML IV SCH (09:00)
--- NOTE | 2018-08-05 09:08 | History & Physical ---
History and Physical History & Physicial dict Rafa Gutierrez MD Aug 05, 2018 09:08
[2018-08-05] MEDS ORDERED: Pantoprazole Inj IVP SCH (09:15)
[2018-08-05] MEDS ORDERED: Flonase Nasal Inhaler 16gm NASAL SCH (10:00)
--- NOTE | 2018-08-05 11:13 | GI Initial Consult Note ---
History of Present Illness General Date patient seen: Aug 05, 2018 Time patient seen: 11:05 Reason for Hospitalization: Abdominal Pain Referring physician: BERENICE OLEARY Reason for Consultation: VOMITING Present Illness HPI This a 67-year-old male with a history of high blood pressure and alcoholic gastritis. He was admitted last night for abdominal pain and elevated lipase. He sat out AMA. He went home and had a piece of chocolate. His pain came back and he has been vomiting since. The complained of 10 out of 10 pain. Pain localized to mostly epigastric area. No fever or chills. Vomiting is nonbloody and nonbilious. No diarrhea. Similar symptom in the past. Recent CT showed no diverticulitis or obstruction. GI consulted for persistent vomiting. Pt seen, awake A&Ox4 NAD with no active s /sx of N/V/D. Patient reported he was recently discharged from [facility], went home had some chocolate which contributed to his persistent vomiting. He denied any coffee grounds of hematemesis. He denies any ETOH abuse and tobacco use. He states he does use marijuana occasionally. At this moment, the patient denies any abdominal pain nor N/V and states he is ready for discharge. The patient is currently on a clear liquid diet. He has a history of diverticulitis s/p colectomy greater than 20 years ago. No recent history within the past 5 years of endoscopy / colonoscopy. Home Meds Reported Medications [antibiotic for eyes] No Conflict Check, 1 DROP IO DAILY, ML 08/03/18 Amlodipine Besylate* (AMLODIPINE BESYLATE*) 5 Mg Tablet, 5 MG ORAL DAILY, TAB 08/03/18 Atorvastatin Calcium* (LIPITOR*) 10 Mg Tablet, 10 MG ORAL DAILY, TAB 08/03/18 Zolpidem Tartrate* (ZOLPIDEM TARTRATE*) 5 Mg Tablet, 5 MG ORAL BEDTIME PRN for Insomnia, TAB 0 Refills 08/03/18 Fluticasone Propionate* (FLUTICASONE PROPIONATE*) 16 Gm [place].susp, 2 SPRAY NASAL DAILY, #16 GM 08/03/18 Discontinued Scripts Ibuprofen* (MOTRIN*) 600 Mg Tablet, 600 MG ORAL Q8H PRN for For Pain, #20 TAB 0 Refills Prov:Abimbola Kimbrough DO 07/21/16 Ciprofloxacin Hcl* (CIPROFLOXACIN HCL*) 500 Mg Tablet, 500 MG ORAL Q12H, #14 TAB 0 Refills Prov:Abimbola Kimbrough DO 07/21/16 Med list reviewed/reconciled: Yes Allergies: Coded Allergies: No Known Allergies (Unverified , 07/20/16) Patient History History Provided By: Patient, Medical Record PMH Narrative Past Medical History: see triage record, old chart reviewed, HTN Past Surgical History: other Pertinent Family History: none Social History: Reports: alcohol use Immunizations: other Reviewed Nursing Documentation: PMH: Agreed; PSxH: Agreed Nursing Documentation-PMH Hx Cardiac Problems: Yes Hx Hypertension: Yes Hx Cancer: No Hx Gastrointestinal Problems: Yes Hx Neurological Problems: No Past Surgical History: other - colectomy Social History: Reports: alcohol use, drug use Review of Systems All Other Systems: negative except mentioned in HPI Physical Exam Vital Signs Date Time Temp Pulse Resp B/P (MAP) Pulse Ox O2 Delivery O2 Flow Rate FiO2 08/04/18 23:03 98.6 87 19 216/118 99 Room Air 08/05/18 02:45 1.0 Sp02 EP Interpretation: reviewed, normal Labs Laboratory Tests Test 08/04/18 23:15 08/04/18 23:30 White Blood Count 13.8 K/UL (4.8-10.8) H Red Blood Count 5.23 M/UL (4.70-6.10) Hemoglobin 16.8 G/DL (14.2-18.0) Hematocrit 46.1 % (42.0-52.0) Mean Corpuscular Volume 88 FL (80-99) Mean Corpuscular Hemoglobin 32.1 PG (27.0-31.0) H Mean Corpuscular Hemoglobin Concent 36.5 G/DL (32.0-36.0) H Red Cell Distribution Width 10.3 % (11.6-14.8) L Platelet Count 283 K/UL (150-450) Mean Platelet Volume 7.1 FL (6.5-10.1) Neutrophils (%) (Auto) 66.1 % (45.0-75.0) Lymphocytes (%) (Auto) 24.6 % (20.0-45.0) Monocytes (%) (Auto) 8.2 % (1.0-10.0) Eosinophils (%) (Auto) 0.7 % (0.0-3.0) Basophils (%) (Auto) 0.5 % (0.0-2.0) Sodium Level 137 MMOL/L (136-145) Potassium Level 2.7 MMOL/L (3.5-5.1) *L Chloride Level 96 MMOL/L (98-107) L Carbon Dioxide Level 28 MMOL/L (21-32) Anion Gap 12 mmol/L (5-15) Blood Urea Nitrogen 16 mg/dL (7-18) Creatinine 1.1 MG/DL (0.55-1.30) Estimat Glomerular Filtration Rate > 60 mL/min (>60) Glucose Level 114 MG/DL (74-106) H Calcium Level 9.9 MG/DL (8.5-10.1) Total Bilirubin 1.1 MG/DL (0.2-1.0) H Direct Bilirubin 0.2 MG/DL (0.0-0.3) Aspartate Amino Transf (AST/SGOT) 33 U/L (15-37) Alanine Aminotransferase (ALT/SGPT) 34 U/L (12-78) Alkaline Phosphatase 80 U/L (46-116) Total Protein 9.5 G/DL (6.4-8.2) H Albumin 4.7 G/DL (3.4-5.0) Globulin 4.8 g/dL Albumin/Globulin Ratio 1.0 (1.0-2.7) Lipase 233 U/L (73-393) Serum Alcohol < 3 mg/dL Urine Color Pale yellow Urine Appearance Clear Urine pH 8 (4.5-8.0) Urine Specific [place] 1.015 (1.005-1.035) Urine Protein Negative (NEGATIVE) Urine Glucose (UA) Negative (NEGATIVE) Urine Ketones 2+ (NEGATIVE) H Urine Blood Negative (NEGATIVE) Urine Nitrite Negative (NEGATIVE) Urine Bilirubin Negative (NEGATIVE) Urine Urobilinogen Normal MG/DL (0.0-1.0) Urine Leukocyte Esterase Negative (NEGATIVE) Urine Opiates Screen Negative (NEGATIVE) Urine Barbiturates Screen Negative (NEGATIVE) Phencyclidine (PCP) Screen Negative (NEGATIVE) Urine Amphetamines Screen Negative (NEGATIVE) Urine Benzodiazepines Screen Negative (NEGATIVE) Urine Cocaine Screen Negative (NEGATIVE) Urine Marijuana (THC) Screen Positive (NEGATIVE) H General Appearance: well appearing, no apparent distress, alert Head: normocephalic EENT: PERRL/EOMI, normal ENT inspection Neck: supple Respiratory: normal breath sounds, no respiratory distress Cardiovascular: normal rate Gastrointestinal: normal inspection, non tender, soft, normal bowel sounds, non -distended Rectal: deferred Genitourinary: deferred Musculoskeletal: normal inspection, back normal Neurologic: normal inspection, alert, oriented x3, responsive Psychiatric: normal inspection, judgement/insight normal, memory normal Skin: normal inspection, normal color, no rash, warm/dry, palpation normal, well hydrated Lymphatic: normal inspection, no adenopathy Current Medications Current Medications Medications (Trade) Dose Ordered Sig/Flaco Route PRN Reason Start Time Stop Time Status Last Admin Dose Admin Amlodipine Besylate (Norvasc) 5 mg DAILY ORAL 08/05/18 09:00 09/04/18 08:59 08/05/18 09:55 Atorvastatin Calcium (Lipitor) 10 mg DAILY ORAL 08/05/18 09:00 09/04/18 08:59 08/05/18 09:54 Dextrose/ Electrolytes 1,000 ml @ 100 mls/hr Q10H IV 08/05/18 09:00 09/04/18 08:59 08/05/18 09:55 Fluticasone Propionate (Flonase) 2 spray DAILY NASAL 08/05/18 10:00 09/04/18 09:59 08/05/18 10:09 Iopamidol (Isovue-300 100ml) 100 ml NOW PRN INJ Radiology Procedure 08/04/18 23:15 Ondansetron HCl (Zofran) 2 mg Q4H PRN IVP Nausea & Vomiting 08/05/18 08:45 09/04/18 08:44 Pantoprazole (Protonix) 40 mg DAILY IVP 08/05/18 09:15 09/04/18 09:14 08/05/18 10:02 Zolpidem Tartrate (Ambien) 5 mg HSPRN PRN ORAL Insomnia 08/05/18 09:00 08/12/18 08:59 GI: Plan Problems: (1) Cyclical vomiting (2) Abdominal pain (3) Proctitis (4) Intractable abdominal pain (5) Dehydration (6) Intractable nausea and vomiting Plan advance to regular diet, okay for DC per GI standpoint if patient is able to tolerate symptomatic treatment zofran prn, reglan for persistent vomiting ppi electrolyte correction fu labs outpatient colonoscopy Discussed with Dr. Looney. Thank you for this patient referral, we will follow. The patient was seen and examined at bedside and all new and available data was reviewed in the patients chart. I agree with the above findings, impression and plan. (Patient seen earlier today. Signature stamp does not reflect patient encounter time.). - MD Rosy Phillips AnhGayle BANUELOS Aug 05, 2018 11:13
--- NOTE | 2018-08-05 14:00 | History and Physical Report ---
DATE OF ADMISSION: 08/05/2018 CHIEF COMPLAINT: Abdominal pain and vomiting. HISTORY OF PRESENT ILLNESS: The patient is a 67-year-old man, who was hospitalized here from 08/03/2018 to 08/04/2018 and left against medical advice. He had abdominal pain and vomiting at that time and improved. He went home and had some food and chocolates and began having pain and vomiting again and was readmitted. A CT of the abdomen was unremarkable. He does have a history of previous emergency room visit at [facility] three days ago for abdominal pain without vomiting and at that time, he complained also of recent fall with head injury and back pain. CT of the head, back, and abdomen were negative for any acute abnormalities. He was discharged home at that time. He does have a history of diverticulitis and surgical resection a number of years ago. Now, he states he is feeling much better, wants to go home again. He has abstained from drinking alcohol for about a year and a half according to his report. Prior to that, he stated he drink several bottles of wine per week and occasionally a bottle per day. He has no hematemesis or melena and no weight loss, fevers, chills, or sweats. PAST MEDICAL HISTORY: Atherosclerosis of abdominal aorta, coronary heart disease without angina, peripheral vascular disease, diverticulitis with resection as noted above, anemia, alcohol dependence as noted above, benzodiazepine dependence, major depressive disorder, lung nodule, and hyperlipidemia. MEDICATIONS: Reviewed and reconciled. ALLERGIES: None. SURGICAL HISTORY: Bunionectomy, laparotomy for diverticulitis. SOCIAL HISTORY: He does not smoke. He uses occasional marijuana, alcohol as noted above. He lives alone in [place]. He lost a partner of 40 years, about a year and a half ago and has been depressed since that time. He was crying during the interview. PHYSICAL EXAMINATION: GENERAL: The patient is alert and responds appropriately. He appears well developed and well nourished. VITAL SIGNS: Shows blood pressure was elevated on admission, but now was found to be normal. Other vital signs normal. HEENT: The head is normocephalic. NECK: No jugular venous distention. No lymphadenopathy. CHEST: Clear. CARDIAC: Rhythm is regular without murmur or gallop. ABDOMEN: Soft and nontender. There is no mass or ascites. There is no liver or spleen enlargement. No tenderness. There is no rebound. Bowel sounds are normal. There is a low midline incision, it is a surgical incision and has healed. EXTREMITIES: No clubbing, cyanosis, or edema. IMAGING: Abdominal and pelvic CT was done and the report shows diverticulosis with no diverticulitis. There is a normal appendix. There is no small bowel distention and no loculated gas or fluid. There is a small sliding hiatal hernia. There is fatty change in the liver. Gallbladder, pancreas, spleen, and adrenals are unremarkable. There are right kidney cysts and small lesions centimeter was also seen. There are no masses. There are calcified granulomata seen at both lung bases and small 5 mm opacities in the lung bases bilaterally, which are nonspecific and are unchanged from previous studies. IMPRESSION: 1. Recurrent abdominal pain and vomiting, most likely due to gastritis. 2. History of alcoholism. 3. Hypertension. 4. Hyperlipidemia. 5. Atherosclerosis of the coronary arteries and aorta. 6. Peripheral vascular disease. 7. Alcohol dependence. 8. Major depression, recurrent.77 9. Hypokalemia. PLAN: The patient will be treated with intravenous fluids. Potassium will be . We will have GI consultation and give intravenous proton-pump inhibitor. Rafa Gutierrez M.D. DR: AUGUST JOB#: [id number] CC: Rafa Gutierrez M.D.; Fax#: [phone]
[2018-08-05] MEDS ORDERED: NORMODYNE100 MG ORAL (17:38)
[2018-08-05] MEDS ORDERED: TOBRADEX EYE DRO5 M1 OP (20:48)
[2018-08-05] MEDS ORDERED: ACUVAIL 0.45%1 EACH OP (20:50)
--- NOTE | 2018-08-07 14:48 | Discharge Summary ---
Discharge Summary Discharge Summary _ DATE OF ADMISSION: 08/05/2018 DATE OF DISCHARGE: 08/06/2018. Patient signed AGAINST MEDICAL ADVICE. REASON FOR ADMISSION: 67 years old male , with past medical history of diverticulitis, status post surgical resection number of years, atherosclerosis of aorta and coronary arteries, coronary artery disease without angina, peripheral vascular disease, anemia, benzodiazepine and alcohol dependency ( abstain from alcohol for about a year and half- as per patient), major depressive disorder, lung nodule, hyperlipidemia, who was hospitalized was hospitalized from 08/03 to 08/04/2018 and left AGAINST MEDICAL ADVICE , after he felt better, presented with abdominal pain and vomiting after eating at home food and chocolate. Patient had a prior visit to [facility] ED 3 days ago for abdominal pain without vomiting . Patient also complained of recent fall with no reported head injury or back pain. CT of the head , back and abdomen were negative for any acute abnormality. Patient was discharged home at that time. Upon evaluation vital signs revealed elevated blood pressure on admission. but then blood pressure stabilized. No fevers. Laboratory workup revealed leucocytosis 13. 8, no shift to the left. Potassium-2.7. CT of the abdomen and pelvis revealed diverticulosis without evidence of diverticulitis. Normal appendix. No small bowel distention. No loculated fluid. Small sliding hiatal hernia noted. Gallbladder,pancreas, spleen and adrenals were unremarkable. No mass. Calcified granulomata seen at both lung bases and small sub-5 mm parenchymal opacities bilaterally, only one of which was evident previously but the others largely excluded from the previous imaging volume. Recommend short interval follow-up CT scan in 6-12 months. Patient admitted with recurrent abdominal pain and vomiting , most likely due to gastritis, history of alcoholism, hypertension, hyperlipidemia, atherosclerosis of coronary artery and aorta, peripheral vascular disease, alcohol dependency, major depression recurrent, hypokalemia. CONSULTANTS: GI specialist Dr. Looney [facility] COURSE: Patient admitted to medical surgical floor and started on the IV fluids and clear liquid diet. Potassium was replaced. GI consult was requested. Patient started on the proton pump inhibitor intravenously. GI specialist seen and evaluated patient. Patient was treated symptomatically with Reglan for persistent vomiting and Zofran on as needed basis. Diet was slowly advanced to regular as tolerated. GI recommended continue PPI and outpatient colonoscopy. Patient clinically improved and decided to leave AGAINST MEDICAL ADVICE. The risks and consequences of signing AGAINST MEDICAL ADVICE were discussed with patient in detail. Patient verbalized understanding, nevertheless signed AMA form and left. FINAL DIAGNOSES: Recurrent abdominal pain and vomiting , most likely due to gastritis Cyclic vomiting Dehydration Proctitis Alcohol dependency History of ETOH abuse Hypertension Hyperlipidemia Peripheral vascular disease Atherosclerosis of the coronary arteries and aorta Major depression, recurrent Hypokalemia I have been assigned to dictate discharge summary for this account. I was not involved in the patient's management. Renetta Lin NP Aug 07, 2018 14:48
== END 2018-08-05 14:00 | disposition left against medical advice (07) | DRG 392 ==
LOC: EMR 23:10 → 4E 08-05 00:58 → EDBEDREQ 08-05 05:44
DX: K29.70 Gastritis, unspecified, without bleeding (principal); F33.9 Major depressive disorder, recurrent, unspecified; R10.9 Unspecified abdominal pain; F10.21 Alcohol dependence, in remission; G43.A0 Cyclical vomiting, in migraine, not intractable; E86.0 Dehydration; K62.89 Other specified diseases of anus and rectum; I10 Essential (primary) hypertension; E78.5 Hyperlipidemia, unspecified; I73.9 Peripheral vascular disease, unspecified; I70.0 Atherosclerosis of aorta; I25.10 Atherosclerotic heart disease of native coronary artery without angina pectoris; Z90.49 Acquired absence of other specified parts of digestive tract; Z91.81 History of falling; K44.9 Diaphragmatic hernia without obstruction or gangrene; E87.6 Hypokalemia
CPT/HCPCS: 36415; 74177; 80053; 80307; 80329; 81003; 82248; 83690; 85025; 87081; 93005; 96361; 96365; 96366; 96368; 96375; 99285; J2405; J8499

== ENCOUNTER 2018-08-05 17:32 | Inpatient (IN) | payer BC ==
[~2018-08-05] VITALS: Ht 165.1 cm; Wt 63.7 kg
[2018-08-05 17:35] VITALS: BP 163/92
[2018-08-05] MEDS ORDERED: NORMODYNE100 MG ORAL (17:38)
[2018-08-05 18:16] LABS: BASOPHILS % (AUTO) 0.3 % (0.0-2.0); EOSINOPHILS % (AUTO) 0.1 % (0.0-3.0); HEMATOCRIT 43.8 % (42.0-52.0); HEMOGLOBIN 15.8 G/DL (14.2-18.0); LYMPHOCYTES % (AUTO) 17.2 % (20.0-45.0); MEAN CORPUSCULAR VOLUME 90 FL (80-99); MONOCYTES % (AUTO) 7.6 % (1.0-10.0); NEUTROPHILS % (AUTO) 74.8 % (45.0-75.0); PLATELET COUNT 289 K/UL (150-450); RED BLOOD COUNT 4.89 M/UL (4.70-6.10); RED CELL DISTRIBUTION WIDTH 10.2 % (11.6-14.8); WHITE BLOOD COUNT 9.8 K/UL (4.8-10.8)
[2018-08-05 18:29] LABS: ANION GAP 12 mmol/L (5-15); BLOOD UREA NITROGEN 11 mg/dL (7-18); CALCIUM 9.1 MG/DL (8.5-10.1); CARBON DIOXIDE 24 MMOL/L (21-32); CHLORIDE 100 MMOL/L (98-107); CREATININE 0.9 MG/DL (0.55-1.30); POTASSIUM 3.3 MMOL/L (3.5-5.1); SODIUM 136 MMOL/L (136-145)
[2018-08-05 18:33] LABS: ALANINE AMINOTRANSFERASE 31 U/L (12-78); ALBUMIN 4.2 G/DL (3.4-5.0); ALKALINE PHOSPHATASE 66 U/L (46-116); ASPARTATE AMINO TRANSFERASE 26 U/L (15-37)
[2018-08-05 18:52] LABS: APPEARANCE,URINE CLEAR; BILIRUBIN, URINE NEGATIVE (NEGATIVE); COLOR,URINE PALE YELLOW; GLUCOSE, URINE (UA) NEGATIVE (NEGATIVE); KETONES,URINE 3+ (NEGATIVE); LEUKOCYTE ESTERASE ,URINE NEGATIVE (NEGATIVE); NITRITE,URINE NEGATIVE (NEGATIVE); PH,URINE 7 (4.5-8.0); PROTEIN,URINE NEGATIVE (NEGATIVE); UROBILINOGEN,URINE NORMAL MG/DL (0.0-1.0)
[2018-08-05] MEDS ORDERED: Ketorolac 30mg Inj IV ONE (19:30)
[2018-08-05] MEDS ORDERED: Lidocaine 2% Visc 15ml soln ORAL ONE (20:15)
[2018-08-05] MEDS ORDERED: Morphine Sulfate 4mg/ml Inj (IV/IM USE ONLY) IVP ONE (20:15)
[2018-08-05] MEDS ORDERED: TOBRADEX EYE DRO5 M1 OP (20:48)
[2018-08-05] MEDS ORDERED: ACUVAIL 0.45%1 EACH OP (20:50)
--- NOTE | 2018-08-05 21:21 | Emergency Room Report ---
History of Present Illness General Chief Complaint: Abdominal Pain Source: Patient, EMS Present Illness HPI This patient is well-known to [facility]. He has been admitted to multiple hospitals to include [facility] and was discharged from [place] today. He complains of diffuse abdominal pain and intractable vomiting. He states he will vomit with even water. He denies alcohol or drug use. He has had abdominal ultrasounds and CAT scans and repeated laboratory workup and all have been unremarkable. He states that he is afraid that he is going to because nobody trauma with him. He is very anxious. He states that his partner a year and half ago and his life is falling apart. He has no other complaints. Allergies: Coded Allergies: No Known Allergies (Unverified , 07/20/16) Patient History Past Medical History: none, see triage record, other - diverticulitis Social History: Denies: smoking, alcohol use, drug use Reviewed Nursing Documentation: PMH: Agreed; PSxH: Agreed Nursing Documentation-PMH Past Medical History: No History, Except For Hx Cardiac Problems: No Hx Hypertension: Yes Hx Cancer: No Hx Gastrointestinal Problems: Yes - Diverticulitis Hx Neurological Problems: No Review of Systems All Other Systems: negative except mentioned in HPI Physical Exam Vital Signs Date Time Temp Pulse Resp B/P (MAP) Pulse Ox O2 Delivery O2 Flow Rate FiO2 08/05/18 17:27 97.9 98 22 179/95 98 Room Air Sp02 EP Interpretation: reviewed, normal General Appearance: no apparent distress, alert, GCS 15, non-toxic Head: normocephalic, atraumatic Eyes: bilateral eye normal inspection, bilateral eye PERRL ENT: hearing grossly normal, normal pharynx, no angioedema, normal voice Neck: full range of motion, supple/symm/no masses Respiratory: chest non-tender, lungs clear, normal breath sounds, no respiratory distress, no retraction, no accessory muscle use, speaking full sentences Cardiovascular #1: regular rate, rhythm, no edema Gastrointestinal: normal bowel sounds, non tender, soft, non-distended, no guarding, no rebound Rectal: deferred Musculoskeletal: back normal, gait/station normal, normal range of motion, non- tender Neurologic: alert, oriented x3, responsive, motor strength/tone normal, sensory intact, speech normal Psychiatric: judgement/insight normal, memory normal, mood/affect normal, no suicidal/homicidal ideation Skin: normal color, no rash, warm/dry, well hydrated Medical Decision Making Diagnostic Impression: Primary Impression: Abdominal pain Additional Impressions: Cyclical vomiting Anxiety Gastritis ER Course This patient has a very show abdominal workup. This includes CT, ultrasound, multiple laboratory workups. Possibly this patient has gastritis/peptic ulcer disease. Also he clearly has anxiety and panic. He will need to be evaluated by psychiatry. The patient is very anxious been unable to function. He is admitted for further evaluation by gastroenterology and psychiatry. Laboratory Tests Test 08/05/18 18:00 08/05/18 18:40 White Blood Count 9.8 K/UL (4.8-10.8) Red Blood Count 4.89 M/UL (4.70-6.10) Hemoglobin 15.8 G/DL (14.2-18.0) Hematocrit 43.8 % (42.0-52.0) Mean Corpuscular Volume 90 FL (80-99) Mean Corpuscular Hemoglobin 32.2 PG (27.0-31.0) H Mean Corpuscular Hemoglobin Concent 35.9 G/DL (32.0-36.0) Red Cell Distribution Width 10.2 % (11.6-14.8) L Platelet Count 289 K/UL (150-450) Mean Platelet Volume 7.1 FL (6.5-10.1) Neutrophils (%) (Auto) 74.8 % (45.0-75.0) Lymphocytes (%) (Auto) 17.2 % (20.0-45.0) L Monocytes (%) (Auto) 7.6 % (1.0-10.0) Eosinophils (%) (Auto) 0.1 % (0.0-3.0) Basophils (%) (Auto) 0.3 % (0.0-2.0) Sodium Level 136 MMOL/L (136-145) Potassium Level 3.3 MMOL/L (3.5-5.1) L Chloride Level 100 MMOL/L (98-107) Carbon Dioxide Level 24 MMOL/L (21-32) Anion Gap 12 mmol/L (5-15) Blood Urea Nitrogen 11 mg/dL (7-18) Creatinine 0.9 MG/DL (0.55-1.30) Estimate Glomerular Filtration Rate > 60 mL/min (>60) Glucose Level 120 MG/DL (74-106) H Calcium Level 9.1 MG/DL (8.5-10.1) Total Bilirubin 1.0 MG/DL (0.2-1.0) Aspartate Amino Transferase (AST) 26 U/L (15-37) Alanine Aminotransferase (ALT) 31 U/L (12-78) Alkaline Phosphatase 66 U/L (46-116) Total Protein 8.4 G/DL (6.4-8.2) H Albumin 4.2 G/DL (3.4-5.0) Globulin 4.2 g/dL Albumin/Globulin Ratio 1.0 (1.0-2.7) Lipase 170 U/L (73-393) Urine Color Pale yellow Urine Appearance Clear Urine pH 7 (4.5-8.0) Urine Specific Chancellor 1.010 (1.005-1.035) Urine Protein Negative (NEGATIVE) Urine Glucose (UA) Negative (NEGATIVE) Urine Ketones 3+ (NEGATIVE) H Urine Blood Negative (NEGATIVE) Urine Nitrite Negative (NEGATIVE) Urine Bilirubin Negative (NEGATIVE) Urine Urobilinogen Normal MG/DL (0.0-1.0) Urine Leukocyte Esterase Negative (NEGATIVE) Last Vital Signs Date Time Temp Pulse Resp B/P (MAP) Pulse Ox O2 Delivery O2 Flow Rate FiO2 08/05/18 17:35 98.0 86 13 163/92 99 Room Air Status: improved Disposition: ADMITTED INPATIENT Condition: Stable Referrals: [facility],REFERRING (PCP) Ignacia Pompa DO Aug 05, 2018 21:21
[2018-08-06] VITALS: BP 143/83
[2018-08-06] MEDS: D5NS w/KCl 40mEq 1000ml 1,000 ML IV SCH ×2 (00:04→09:15)
[2018-08-06] MEDS: Zolpidem 5mg tab ORAL PRN ×2 (00:06→20:26)
[2018-08-06 04:00] VITALS: BP 158/92
[2018-08-06] MEDS: Pantoprazole Inj IVP SCH (06:31)
[2018-08-06 08:00] VITALS: BP 139/80
[2018-08-06 09:41] LABS: ANION GAP 8 mmol/L (5-15); BLOOD UREA NITROGEN 12 mg/dL (7-18); CALCIUM 9.1 MG/DL (8.5-10.1); CARBON DIOXIDE 27 MMOL/L (21-32); CHLORIDE 104 MMOL/L (98-107); CREATININE 0.9 MG/DL (0.55-1.30); SODIUM 139 MMOL/L (136-145)
[2018-08-06] MEDS: Flonase Nasal Inhaler 16gm NASAL SCH (10:59)
[2018-08-06 12:00] VITALS: BP 135/97
[2018-08-06] MEDS: D5NS 1,000 ML IV SCH ×2 (12:14→23:00)
[2018-08-06 16:00] VITALS: BP 133/78
--- NOTE | 2018-08-06 16:15 | History and Physical Report ---
DATE OF ADMISSION: 08/05/2018 HISTORY OF PRESENT ILLNESS: The patient is a 67-year-old man who left the hospital on August 05 against medical advice shortly after eating, stating that he had no more abdominal pain and feeling fine. I had advised him to stay for another day. He got inconsistent advice from the gastroenterology consultants. He states that within an hour of getting home he ate again and began having severe abdominal pain and came back to the emergency department. He has been thoroughly evaluated and it was recommended that he go to [facility] where he is contracted, but he refused to leave and admission was arranged. He is depressed over the loss of his partner many years about 18 months ago. He is known to abuse alcohol, although he states he has not had anything to drink in over a year. At this time, he states that his pain has abated and he is tolerating clear liquids. He is hypokalemic and potassium supplements were given. PAST MEDICAL HISTORY: Atherosclerosis of abdominal aorta, coronary heart disease without angina, peripheral vascular disease, diverticulitis with resection many years ago, anemia, alcohol dependence, benzodiazepine dependence, major depressive disorder, lung nodule, hyperlipidemia. MEDICATIONS: Reviewed and reconciled. ALLERGIES: None. PAST SURGICAL HISTORY: Laparotomy for diverticulitis many years ago. SOCIAL HISTORY: He does not smoke. Alcohol history: no alcohol for a year and a half; before that he drank several bottles of wine per week and occasionally a bottle per day. He uses occasional marijuana. PHYSICAL EXAMINATION: GENERAL: The patient is alert and responds appropriately. He is well developed and well nourished. VITAL SIGNS: Normal. HEENT: Head is normocephalic. NECK: No jugular venous distention. CHEST: Clear. CARDIAC: Rhythm is regular. ABDOMEN: Soft and nontender. No ascites. No masses. No liver or spleen enlargement. EXTREMITIES: No clubbing, cyanosis, or edema. LABORATORY AND DIAGNOSTIC DATA: White count is normal. Hemoglobin is 15.8, and platelets are normal. Potassium is low at 3.3, improved from 2.7 the day before. Total protein is somewhat elevated. Urinalysis was normal with no ketones noted. The blood sugar was 120. There is no new imaging report. IMPRESSION: 1. Recurrent abdominal pain, likely gastritis. 2. Recurrent vomiting. 3. Depression. 4. History of alcohol abuse. 5. Coronary artery disease and aortic atherosclerosis. 6. Status post colon resection for diverticulitis. PLAN: 1. The patient will be given intravenous fluids and potassium supplementation. 2. Psychiatry is on-call to see him. 3. We will continue clear liquids at the present time. 4. He is stable for transfer to his contracted hospital. Rafa Gutierrez M.D. DR: Vivien JOB#: [id number] CC: MICHELINE
--- NOTE | 2018-08-06 19:26 | Consultation ---
History of Present Illness General Chief Complaint: Abdominal Pain Present Illness HPI 67-year-old man with hx of depression who has left against medical recently was returned due to severe abdominal wall. I have treated this pt last year. the pt has hx of depression and has poor insight. the pt stated that he is not suicidal however still depressed and "cannot get over my partners " the pt is reluctant to antidepressants. the pt has anxiety and insomnia as well. Allergies: Coded Allergies: No Known Allergies (Unverified , 07/20/16) Medication History Scheduled Amlodipine Besylate* (Amlodipine Besylate*), 5 MG ORAL DAILY, (Reported) Atorvastatin Calcium* (Lipitor*), 10 MG ORAL DAILY, (Reported) Fluticasone Propionate* (Fluticasone Propionate*), 2 SPRAY NASAL DAILY, ( Reported) Ketorolac Tromethamine/Pf (Acuvail 0.45% Ophth Solution), 1 DROP OP TID, ( Reported) Tobramycin/Dexamethasone (Tobradex Eye Drops), 1 DROP OP TID, (Reported) Scheduled PRN Zolpidem Tartrate* (Zolpidem Tartrate*), 5 MG ORAL BEDTIME PRN for Insomnia, ( Reported) Discontinued Medications Ciprofloxacin Hcl* (Ciprofloxacin Hcl*), 500 MG ORAL Q12H Discontinued Reason: Therapy completed Ibuprofen* (Motrin*), 600 MG ORAL Q8H PRN for For Pain Discontinued Reason: Therapy completed Labetalol HCl (Labetalol HCl), 5 MG ORAL DAILY, (Reported) Discontinued Reason: Therapy completed [antibiotic for eyes], 1 DROP IO DAILY, (Reported) Discontinued Reason: Prescription changed Patient History Limited by: medical condition History Provided By: Patient, Medical Record, PMD Healthcare decision maker Resuscitation status Full Code Advanced Directive on File No Past Medical/Surgical History Past Medical/Surgical History: (1) Proctitis (2) Gastritis (3) Cyclical vomiting (4) Anxiety (5) Abdominal pain Review of Systems Psychiatric: Reports: prior hx, anxiety, depressed feelings, emotional problems Physical Exam General Appearance: no apparent distress, alert, thin Neurologic: oriented x 3, responsive, depressed affect Last 24 Hour Vital Signs Date Time Temp Pulse Resp B/P (MAP) Pulse Ox O2 Delivery O2 Flow Rate FiO2 08/06/18 16:00 98.0 69 17 133/78 (96) 98 08/06/18 12:00 98.8 78 18 135/97 (110) 98 08/06/18 10:03 82 152/108 08/06/18 09:40 Room Air 08/06/18 09:00 Room Air 08/06/18 08:00 97.7 65 18 139/80 (99) 98 08/06/18 04:00 97.8 65 18 158/92 (114) 98 08/06/18 00:00 98.5 80 19 143/83 (103) 98 08/05/18 23:23 Room Air 08/05/18 22:40 98.1 86 13 166/91 99 Room Air Intake and Output 08/05/18 08/06/18 19:00 07:00 Intake Total 1000 ml 100 ml Balance 1000 ml 100 ml IV Total 1000 ml 100 ml # Voids 1 1 Laboratory Tests Test 08/06/18 09:10 Sodium Level 139 MMOL/L (136-145) Potassium Level 4.0 MMOL/L (3.5-5.1) Chloride Level 104 MMOL/L (98-107) Carbon Dioxide Level 27 MMOL/L (21-32) Anion Gap 8 mmol/L (5-15) Blood Urea Nitrogen 12 mg/dL (7-18) Creatinine 0.9 MG/DL (0.55-1.30) Estimat Glomerular Filtration Rate > 60 mL/min (>60) Glucose Level 132 MG/DL (74-106) H Calcium Level 9.1 MG/DL (8.5-10.1) Height (Feet): 5 Height (Inches): 5.00 Weight (Pounds): 145 Medications Current Medications Medications (Trade) Dose Ordered Sig/Flaco Route PRN Reason Start Time Stop Time Status Last Admin Dose Admin Amlodipine Besylate (Norvasc) 5 mg DAILY ORAL 08/06/18 09:00 09/05/18 08:59 08/06/18 10:03 Atorvastatin Calcium (Lipitor) 10 mg BEDTIME ORAL 08/06/18 21:00 09/05/18 20:59 Dextrose/Sodium Chloride 1,000 ml @ 100 mls/hr Q10H IV 08/06/18 11:30 09/05/18 11:29 08/06/18 12:14 Escitalopram Oxalate (Lexapro) 10 mg DAILY ORAL 08/06/18 11:02 09/05/18 11:01 Fluticasone Propionate (Flonase) 2 spray DAILY NASAL 08/06/18 09:00 09/05/18 08:59 08/06/18 10:59 Ondansetron HCl (Zofran) 2 mg EVERY 4 HOURS PRN IVP Nausea & Vomiting 08/05/18 23:15 09/04/18 23:14 Pantoprazole (Protonix) 40 mg ACBREAKFAST IVP 08/06/18 06:30 09/05/18 06:29 08/06/18 06:31 Zolpidem Tartrate (Ambien) 5 mg HSPRN PRN ORAL Insomnia 08/05/18 23:15 08/12/18 23:14 08/06/18 00:06 Assessment/Plan Problem List: (1) Major depression, chronic ICD Codes: F34.1 - Dysthymic disorder SNOMED: 551602593, [id number] (2) Anxiety ICD Codes: F41.9 - Anxiety disorder, unspecified SNOMED: 57347676 Assessment/Plan Lexapro 10mg qam provided ro/st MIPS Medication Reconciliation Is this a Psycho/Diag encounte: Yes Unhealthy Alcohol Use 431 (psycho/diag only) I Obtained,updated or reviewed the patient's current medications (including prescription,over the counter, herbal, and nutritional supplements). Tobacco Use 226 (psycho/diag only) Patient was screened for tobacco use today or within the past 2 years. Patient was NOT identified as a tobacco user. BMI 128 (psycho/diag only) BMI was documented today or within the past year. BMI was within normal parameters. Depression 134,411,370 (psycho/diag only) Depression screening was performed today. PHQ-9 Score: 21 Does this Patient have Dementi: Diana Calloway MD Aug 06, 2018 19:26
[2018-08-06 20:00] VITALS: BP 155/89
[2018-08-07] VITALS: BP 151/84
[2018-08-07 04:00] VITALS: BP 148/79
[2018-08-07] MEDS: Pantoprazole Inj IVP SCH (05:56)
[2018-08-07 06:32] LABS: BASOPHILS % (AUTO) 0.8 % (0.0-2.0); HEMATOCRIT 39.1 % (42.0-52.0); HEMOGLOBIN 14.2 G/DL (14.2-18.0); LYMPHOCYTES % (AUTO) 34.2 % (20.0-45.0); MEAN CORPUSCULAR VOLUME 90 FL (80-99); MONOCYTES % (AUTO) 13.6 % (1.0-10.0); NEUTROPHILS % (AUTO) 48.3 % (45.0-75.0); PLATELET COUNT 224 K/UL (150-450); RED BLOOD COUNT 4.33 M/UL (4.70-6.10); RED CELL DISTRIBUTION WIDTH 10.6 % (11.6-14.8); WHITE BLOOD COUNT 5.7 K/UL (4.8-10.8)
[2018-08-07 07:03] LABS: ALANINE AMINOTRANSFERASE 28 U/L (12-78); ALBUMIN 3.3 G/DL (3.4-5.0); ALBUMIN/GLOBULIN RATIO 0.9 (1.0-2.7); ALKALINE PHOSPHATASE 58 U/L (46-116); ANION GAP 8 mmol/L (5-15); ASPARTATE AMINO TRANSFERASE 20 U/L (15-37); BILIRUBIN,TOTAL 1.1 MG/DL (0.2-1.0); BLOOD UREA NITROGEN 6 mg/dL (7-18); CALCIUM 8.7 MG/DL (8.5-10.1); CARBON DIOXIDE 27 MMOL/L (21-32); CHLORIDE 106 MMOL/L (98-107); CREATININE 0.7 MG/DL (0.55-1.30); POTASSIUM 3.5 MMOL/L (3.5-5.1); SODIUM 141 MMOL/L (136-145)
[2018-08-07 07:04] LABS: BILIRUBIN,DIRECT 0.2 MG/DL (0.0-0.3)
[2018-08-07] MEDS: D5NS 1,000 ML IV SCH (07:30)
[2018-08-07 08:00] VITALS: BP 143/80
[2018-08-07] MEDS: Flonase Nasal Inhaler 16gm NASAL SCH (08:54)
[2018-08-07] MEDS ORDERED: D5NS 1000ml IV ONE (10:44)
--- NOTE | 2018-08-07 11:22 | General Progress Note ---
Assessment/Plan Assessment/Plan 1. Recurrent abdominal pain, likely gastritis. 2. Recurrent vomiting. 3. Depression. 4. History of alcohol abuse. 5. Coronary artery disease and aortic atherosclerosis. 6. Status post colon resection for diverticulitis. no pain or emesis advance diet start oral PPI, Lexapro dc later today if tolerates food Subjective Constitutional: Reports: no symptoms Gastrointestinal/Abdominal: Denies: no symptoms, abdomen distended, abdominal pain, black stools, tarry stools, blood in stool, constipated, diarrhea, difficulty swallowing, nausea, poor appetite, poor fluid intake, rectal bleeding , vomiting, other Allergies: Coded Allergies: No Known Allergies (Unverified , 07/20/16) Objective Last 24 Hour Vital Signs Date Time Temp Pulse Resp B/P (MAP) Pulse Ox O2 Delivery O2 Flow Rate FiO2 08/07/18 08:54 83 143/80 08/07/18 08:00 97.9 83 18 143/80 (101) 97 08/07/18 04:00 98.1 74 19 148/79 (102) 97 08/07/18 00:00 98.1 72 19 151/84 (106) 97 08/06/18 21:00 Room Air 08/06/18 20:00 98.3 20 155/89 (111) 97 08/06/18 16:00 98.0 69 17 133/78 (96) 98 08/06/18 12:00 98.8 78 18 135/97 (110) 98 Intake and Output 08/06/18 08/07/18 19:00 07:00 Intake Total 2420 ml 860 ml Output Total 800 ml Balance 2420 ml 60 ml Intake Oral 1420 ml 360 ml IV Total 1000 ml 500 ml Output Urine Total 800 ml # Voids 6 3 # Bowel Movements 1 1 Laboratory Tests 08/07/18 05:10: White Blood Count 5.7, Red Blood Count 4.33L, Hemoglobin 14.2, Hematocrit 39.1L , Mean Corpuscular Volume 90, Mean Corpuscular Hemoglobin 32.7H, Mean Corpuscular Hemoglobin Concent 36.2H, Red Cell Distribution Width 10.6L, Platelet Count 224, Mean Platelet Volume 7.7, Neutrophils (%) (Auto) 48.3, Lymphocytes (%) (Auto) 34.2, Monocytes (%) (Auto) 13.6H, Eosinophils (%) (Auto) 3.0, Basophils (%) (Auto) 0.8, Sodium Level 141, Potassium Level 3.5, Chloride Level 106, Carbon Dioxide Level 27, Anion Gap 8, Blood Urea Nitrogen 6L, Creatinine 0.7, Estimat Glomerular Filtration Rate > 60, Glucose Level 91, Calcium Level 8.7, Total Bilirubin 1.1H, Direct Bilirubin 0.2, Aspartate Amino Transf (AST/SGOT) 20, Alanine Aminotransferase (ALT/SGPT) 28, Alkaline Phosphatase 58, Total Protein 7.0, Albumin 3.3L, Globulin 3.7, Albumin/Globulin Ratio 0.9L Height (Feet): 5 Height (Inches): 5.00 Weight (Pounds): 140 General Appearance: no apparent distress Abdomen: non tender, soft, no organomegaly Rafa Gutierrez MD Aug 07, 2018 11:22
[2018-08-07 12:00] VITALS: BP 140/77
[2018-08-07] MEDS ORDERED: PROTONIX40 MG ORAL (15:54)
[2018-08-07] MEDS ORDERED: LEXAPRO10 MG ORAL (15:54)
[2018-08-07 16:00] VITALS: BP 142/89
--- NOTE | 2018-08-08 14:57 | Discharge Summary ---
Discharge Summary Discharge Summary _ DATE OF ADMISSION: August 06, 2018 DATE OF DISCHARGE: August 07, 2018 CONSULTANTS: Dr. Diana Goncalves [facility] COURSE: Patient is a 67-year-old male, who left the hospital on August 05 and left AGAINST MEDICAL ADVICE shortly after eating stating that he had no more abdominal pain and was feeling fine. Within an hour of getting home, he ate and began to have severe abdominal pain and presented back to the emergency department. He was recommended to go to [facility] where he is contracted, but he refused to leave. Admission was then arranged. He was depressed over the loss of his partner 18 months ago. He is known to abuse alcohol, although he claims he did not drink alcohol in over a year. On evaluation at ED, white count was normal, hemoglobin and platelet were normal. Potassium was low. Urinalysis was normal with no ketones noted. Blood sugar was 120. He was admitted and was given intravenous fluids and potassium supplementation. He was initially started on clear liquid diet. Psychiatrist was consulted. Patient is not suicidal however was depressed over the of her partner. He was given Lexapro 10 mg. Diet was advanced. There were no more abdominal pain or emesis. He was given proton pump inhibitors and was continued on Lexapro. He was eventually discharged home. FINAL DIAGNOSES: Recurrent abdominal pain, likely gastritis Recurrent vomiting Depression History of alcohol abuse Coronary artery disease and aortic atherosclerosis Is post colon resection for diverticulitis DISPOSITION: Patient was discharged home. DISCHARGE MEDICATIONS: Refer to Discharge Medication List. DISCHARGE INSTRUCTIONS: Follow up with PCP in a week. I have been assigned to dictate discharge summary on this account, and I was not involved in the patient's management. Zuly Romeo NP Aug 08, 2018 14:57
== END 2018-08-07 19:01 | disposition home or self-care (01) | DRG 392 ==
LOC: EDBD 17:32 → EMR 20:45 → 4E 20:48 → INTOOBSV 20:48 → EDBEDREQ 21:34 → OBSVTOIN 08-06 14:41
DX: K29.70 Gastritis, unspecified, without bleeding (principal); R11.10 Vomiting, unspecified; F10.21 Alcohol dependence, in remission; I25.10 Atherosclerotic heart disease of native coronary artery without angina pectoris; I70.0 Atherosclerosis of aorta; Z90.49 Acquired absence of other specified parts of digestive tract; F34.1 Dysthymic disorder; F41.9 Anxiety disorder, unspecified; I73.9 Peripheral vascular disease, unspecified; E78.5 Hyperlipidemia, unspecified
CPT/HCPCS: 36415; 80048; 80053; 81003; 82248; 83690; 85025; 87081; 96360; 96361; 96372; 96374; 96375; 99284; J2405